=== PATIENT | female | born 1960 | race Caucasian/White ===

== ENCOUNTER 2020-01-26 09:23 | Emergency (ER) | payer BC ==
[2020-01-26] MEDS ORDERED: NORMAL SALINE 1000 ML 1,000 ML IV ONE (10:32)
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
[2020-01-26 10:51] LABS: ABSOLUTE EOSINOPHILS # (AUTO) 0.1 10^3/uL (0.0-0.6); ABSOLUTE LYMPHOCYTES (AUTO) 2.5 10^3/uL (0.5-4.7); ABSOLUTE MONOCYTES (AUTO) 0.5 10^3/uL (0.1-1.4); ABSOLUTE NEUT (AUTO) 12.6 10^3/uL (1.7-8.2); BASOPHILS % (AUTO) 0.2 % (0-2); EOSINOPHILS % (AUTO) 0.3 % (0-6); HEMATOCRIT 42.5 % (36.0-47.0); HEMOGLOBIN 14.6 g/dL (12.0-15.5); LYMPHOCYTES % (AUTO) 15.9 % (13-45); MEAN CORPUSCULAR HEMOGLOBIN 29.5 pg (27.0-33.4); MEAN CORPUSCULAR HGB CONC 34.3 g/dL (32.0-36.0); MEAN CORPUSCULAR VOLUME 86 fl (80-97); MONOCYTES % (AUTO) 3.1 % (3-13); PLATELET COUNT 385 10^3/uL (150-450); RED BLOOD COUNT 4.94 10^6/uL (3.72-5.28); RED CELL DISTRIBUTION WIDTH 14.8 % (11.5-14.0); SEGMENTED NEUTROPHILS % (AUTO) 80.5 % (42-78); TOTAL CELLS COUNTED % (AUTO) 100 %; WHITE BLOOD COUNT 15.7 10^3/uL (4.0-10.5)
[2020-01-26 11:12] LABS: ALBUMIN 4.5 g/dL (3.5-5.0); ALKALINE PHOSPHATASE 61 U/L (38-126); ANION GAP 9 (5-19); ASPARTATE AMINO TRANSFERASE 17 U/L (14-36); BILIRUBIN,TOTAL 0.8 mg/dL (0.2-1.3); BLOOD UREA NITROGEN 11 mg/dL (7-20); CALCIUM 9.8 mg/dL (8.4-10.2); CARBON DIOXIDE 26 mmol/L (22-30); CHLORIDE 105 mmol/L (98-107); GLUCOSE 120 mg/dL (75-110); TOTAL PROTEIN 7.7 g/dL (6.3-8.2)
[2020-01-26] MEDS ORDERED: ONDANSETRON HCL INJ/PF 4 MG/2 ML SDV IV ONE (11:55)
[2020-01-26] MEDS ORDERED: FENTANYL CITRATE INJ/PF 100 MCG/2 ML AMPUL IV ONE (11:55)
[2020-01-26 12:12] LABS: APPEARANCE,URINE CLEAR; BILIRUBIN,URINE NEGATIVE (NEGATIVE); COLOR,URINE YELLOW; GLUCOSE, URINE NEGATIVE (NEGATIVE); KETONES,URINE TRACE mg/dL (NEGATIVE); LEUKOCYTE ESTERASE,URINE NEGATIVE (NEGATIVE); NITRITE,URINE NEGATIVE (NEGATIVE); PROTEIN,URINE NEGATIVE (NEGATIVE); URINE SPECIFIC GRAVITY 1.014; UROBILINOGEN,URINE NEGATIVE mg/dL (<2.0)
--- NOTE | 2020-01-26 14:35 | RADIOLOGY REPORT (SQ) ---
EXAM DESCRIPTION: CT ABD/PELVIS WITH IV ORAL IMAGES COMPLETED DATE/TIME: 01/26/2020 2:10 pm REASON FOR STUDY: lower pelvic pain COMPARISON: None. TECHNIQUE: CT scan of the abdomen and pelvis performed using helical scanning technique with dynamic intravenous contrast injection. No oral contrast. Images reviewed with lung, soft tissue, and bone windows. Reconstructed coronal and sagittal MPR images reviewed. Delayed images for evaluation of the urinary system also acquired. All images stored on PACS. All CT scanners at this facility use dose modulation, iterative reconstruction, and/or weight based d osing when appropriate to reduce radiation dose to as low as reasonably achievable (ALARA). [facility]: Dose Right [facility]: CareDose [facility]: Dose Right [facility]: Teradose 4D [facility]: orangutrans CONTRAST TYPE AND DOSE: contrast/concentration: Isovue 350.00 mg/ml; Total Contrast Delivered: 70.0 ml; Total Saline Delivered: 65.0 ml RENAL FUNCTION: BUN 11, creatinine 0.72 RADIATION DOSE: CT Rad equipment meets quality standard of care and radiation dose reduction techniq ues were employed. CTDIvol: 6.4 - 9.0 mGy. DLP: 805 mGy-cm.. LIMITATIONS: None. FINDINGS: LOWER CHEST: No significant findings. No nodules or infiltrates. LIVER: Small hepatic cyst. Normal size. No suspicious masses. SPLEEN: Normal size. No focal lesions. PANCREAS: No masses. No significant calcifications. No adjacent inflammation or peripancreatic fluid collections. Pancreatic duct not dilated. GALLBLADDER: No identified stones by CT criteria. No inflammatory changes to suggest cholecystitis. ADRENAL GLANDS: No significant masses or asymmetry. RIGHT KIDNEY AND URETER: No solid masses. No significant calcifications. No hydronephrosis or hyd roureter. LEFT KIDNEY AND URETER: Small hypoattenuating lesion in the cortex of left kidney approximately mid p ole this is too small to accurately characterize but most likely a small cyst. No significant calci fications. No hydronephrosis or hydroureter. AORTA AND VESSELS: No aneurysm. No dissection. Renal arteries, SMA, celiac without stenosis. RETROPERITONEUM: No retroperitoneal adenopathy, hemorrhage or masses. BOWEL AND PERITONEAL CAVITY: Extensive inflammatory changes surrounding the descending sigmoid colon. There are numerous diverticuli in this area. Changes may represent diverticulitis. Focal mass can not be excluded. Overall size is 6.9 x 4.1 cm. There is surrounding inflammation most marked distal ly. No drainable fluid collections. Small contained perforation is suspected best demonstrated on s eries 5, image 63. This measures 1.3 cm in size. APPENDIX: Surgically absent. PELVIS: No mass. No free fluid. Normal bladder. ABDOMINAL WALL: No masses. No hernias. BONES: No significant or acute findings. OTHER: No other significant finding. IMPRESSION: Inflammatory changes surrounding the distal sigmoid colon. Most likely diverticulitis. Underlying neoplasm cannot be excluded. No focal drainable abscess. Probable loculated collection in the right aspect of the pelvis measured 1.3 cm. This is best demonstrated on series 5, image 63. TECHNICAL DOCUMENTATION: JOB ID: [id number] Quality ID # [id number]: Final reports with documentation of one or more dose reduction techniques (e.g., Au tomated exposure control, adjustment of the mA and/or kV according to patient size, use of iterative reconstruction technique) 2010 [employer]- All Rights Reserved Reading location - IP/workstation name: [email or web address]
[2020-01-26 15:06] VITALS: BP 133/112
[2020-01-26] MEDS ORDERED: CIPROFLOXACIN HCL 500 MG TABLET PO ONE (15:33)
[2020-01-26] MEDS ORDERED: METRONIDAZOLE 500 MG TABLET PO ONE (15:33)
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
== END 2020-01-26 15:52 | disposition home or self-care (01) ==
LOC: ER 09:23
DX: K57.92 Diverticulitis of intestine, part unspecified, without perforation or abscess without bleeding (principal); R10.30 Lower abdominal pain, unspecified; R11.2 Nausea with vomiting, unspecified; R10.2 Pelvic and perineal pain; M54.5 Low back pain; Z87.891 Personal history of nicotine dependence; I10 Essential (primary) hypertension
CPT/HCPCS: 99284; 96361; 96374; 96375; 36415; 83690; 85025; 80053; 81001; 74177; J3010; J2405; J7030

== ENCOUNTER → 2020-02-15 | Outpatient (CLI) | payer BC ==
--- NOTE | 2020-02-15 14:46 | RADIOLOGY REPORT (SQ) ---
EXAM DESCRIPTION: CT ABD/PELVIS WITH IV ORAL IMAGES COMPLETED DATE/TIME: 02/15/2020 1:08 pm REASON FOR STUDY: K57.92 DVTRCLI OF INTEST, PART UNSP, W/O PERF OR ABSCESS W/O BLEED K57.92 DVTRCLI OF INTEST, PART UNSP, W/O PERF OR ABSCESS W/O COMPARISON: 01/26/2020 TECHNIQUE: CT scan of the abdomen and pelvis performed using helical scanning technique with dynamic intravenous contrast injection. Oral contrast. Images reviewed with lung, soft tissue, and bone win dows. Reconstructed coronal and sagittal MPR images reviewed. Delayed images for evaluation of the ur inary system also acquired. All images stored on PACS. All CT scanners at this facility use dose modulation, iterative reconstruction, and/or weight based d osing when appropriate to reduce radiation dose to as low as reasonably achievable (ALARA). [facility]: Dose Right [facility]: CareDose [facility]: Dose Right [facility]: Teradose 4D [facility]: Elixr CONTRAST TYPE AND DOSE: 65 cc Omnipaque 350- low osmolar. RENAL FUNCTION: BUN 11 creatinine 0.72 RADIATION DOSE: CT Rad equipment meets quality standard of care and radiation dose reduction techniq ues were employed. CTDIvol: 4.6 - 4.6 mGy. DLP: 444 mGy-cm.. LIMITATIONS: None. FINDINGS: LOWER CHEST: No significant findings. No nodules or infiltrates. LIVER: Normal size. No masses. No dilated ducts. SPLEEN: Normal size. No focal lesions. PANCREAS: No masses. No significant calcifications. No adjacent inflammation or peripancreatic fluid collections. Pancreatic duct not dilated. GALLBLADDER: No identified stones by CT criteria. No inflammatory changes to suggest cholecystitis. ADRENAL GLANDS: No significant masses or asymmetry. RIGHT KIDNEY AND URETER: No solid masses. No significant calcifications. No hydronephrosis or hyd roureter. LEFT KIDNEY AND URETER: No solid masses. No significant calcifications. No hydronephrosis or hydr oureter. AORTA AND VESSELS: No aneurysm. No dissection. Renal arteries, SMA, celiac without stenosis. RETROPERITONEUM: No retroperitoneal adenopathy, hemorrhage or masses. BOWEL AND PERITONEAL CAVITY: Descending and sigmoid diverticulosis. There is thickening of a segment of the sigmoid colon seen best on image 61 series 2. There appears to be slight improvement in the appearance compared to the earlier study. No abscess is appreciated. No free air is appreciated. APPENDIX: Surgically absent. PELVIS: No mass. No free fluid. Normal bladder. ABDOMINAL WALL: No masses. No hernias. BONES: No significant or acute findings. OTHER: No other significant finding. IMPRESSION: Diverticulosis. There is thickening of a segment of sigmoid colon with slight improveme nt that may indicate persistent inflammation. Continued follow-up is recommended. No abscess is see n. No significant perforation is seen. TECHNICAL DOCUMENTATION: JOB ID: [id number] Quality ID # [id number]: Final reports with documentation of one or more dose reduction techniques (e.g., Au tomated exposure control, adjustment of the mA and/or kV according to patient size, use of iterative reconstruction technique) 2010 [employer]- All Rights Reserved Reading location - IP/workstation name: [email or web address]
== END ==
LOC: RAD 12:42
PROVIDERS: ATTEND Surgery
DX: K57.92 Diverticulitis of intestine, part unspecified, without perforation or abscess without bleeding (principal); R10.9 Unspecified abdominal pain
CPT/HCPCS: 74177

== ENCOUNTER 2020-03-05 15:44 | Inpatient (IN) | payer BC ==
[2020-03-05] MEDS ORDERED: NORMAL SALINE 1000 ML 1,000 ML IV ONE (17:15)
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
[2020-03-05 18:12] LABS: ABSOLUTE LYMPHOCYTES (AUTO) 1.9 10^3/uL (0.5-4.7); ABSOLUTE MONOCYTES (AUTO) 1.2 10^3/uL (0.1-1.4); ABSOLUTE NEUT (AUTO) 11.1 10^3/uL (1.7-8.2); BASOPHILS % (AUTO) 0.3 % (0-2); EOSINOPHILS % (AUTO) 0.2 % (0-6); HEMATOCRIT 41.1 % (36.0-47.0); LYMPHOCYTES % (AUTO) 13.5 % (13-45); MEAN CORPUSCULAR HEMOGLOBIN 29.5 pg (27.0-33.4); MEAN CORPUSCULAR VOLUME 87 fl (80-97); MONOCYTES % (AUTO) 8.5 % (3-13); PLATELET COUNT 493 10^3/uL (150-450); RED BLOOD COUNT 4.73 10^6/uL (3.72-5.28); RED CELL DISTRIBUTION WIDTH 15.7 % (11.5-14.0); SEGMENTED NEUTROPHILS % (AUTO) 77.5 % (42-78); TOTAL CELLS COUNTED % (AUTO) 100 %; WHITE BLOOD COUNT 14.3 10^3/uL (4.0-10.5)
[2020-03-05 18:25] LABS: ALBUMIN 3.8 g/dL (3.5-5.0); ALKALINE PHOSPHATASE 125 U/L (38-126); ANION GAP 15 (5-19); ASPARTATE AMINO TRANSFERASE 22 U/L (14-36); BILIRUBIN,DIRECT 0.4 mg/dL (0.0-0.4); BILIRUBIN,TOTAL 1.5 mg/dL (0.2-1.3); BLOOD UREA NITROGEN 14 mg/dL (7-20); CALCIUM 9.4 mg/dL (8.4-10.2); CARBON DIOXIDE 22 mmol/L (22-30); CHLORIDE 98 mmol/L (98-107); GLUCOSE 107 mg/dL (75-110); TOTAL PROTEIN 7.4 g/dL (6.3-8.2)
[2020-03-05] MEDS ORDERED: ONDANSETRON HCL INJ/PF 4 MG/2 ML SDV IV ONE (21:31)
[2020-03-05] MEDS ORDERED: HYDROMORPHONE HCL INJ/PF 2 MG/ML AMPULE IV ONE (21:31)
[2020-03-05 21:42] LABS: APPEARANCE,URINE CLOUDY; BILIRUBIN,URINE SMALL (NEGATIVE); GLUCOSE, URINE NEGATIVE (NEGATIVE); KETONES,URINE 80 mg/dL (NEGATIVE); LEUKOCYTE ESTERASE,URINE MODERATE (NEGATIVE); NITRITE,URINE NEGATIVE (NEGATIVE); PROTEIN,URINE 100 mg/dL (NEGATIVE); URINE SPECIFIC GRAVITY 1.027
[2020-03-05 21:43] LABS: COLOR,URINE DARK YELLOW
[2020-03-05] MEDS ORDERED: CEFOXITIN 1 GM/D5W RTU 1 GM/50 ML RTUPB IV ONE (22:01)
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
[2020-03-05] MEDS ORDERED: METRONIDAZOLE 500 MG/NS RTU 500 MG/100 ML RTUPB IV ONE (23:15)
[2020-03-05] MEDS ORDERED: CLINDAMYCIN 600 MG/D5W RTU 600 MG/50 ML RTUPB IV ONE (23:30)
[2020-03-06] MEDS: RINGERS SOLUTION,LACTATED 1,000 ML IV PRN ×3 (00:19→20:06)
--- NOTE | 2020-03-06 00:23 | EKG REPORT ---
SEVERITY:- NORMAL ECG - SINUS RHYTHM : Confirmed by: Noble Barkley 06-Mar-2020 00:22:36
--- NOTE | 2020-03-06 01:28 | RADIOLOGY REPORT (SQ) ---
CLINICAL HISTORY: LLQ pain COMPARISON: 02/15/2020. TECHNIQUE: CT ABDOMEN PELVIS WITH IV CONTRAST on 03/05/2020 12:00 AM CDT This exam was performed according to our departmental dose-optimization program, which includes automated exposure control, adjustment of the mA and/or kV according to patient size and/or use of iterative reconstruction technique. FINDINGS: Lower lungs are clear. Abdomen: The liver is normal in appearance. There is no biliary dilatation. Gallbladder is normal in appearance. There is a tiny hiatal hernia. There is moderate proximal duodenal diverticulum. The pancreas and spleen are normal in appearance. The adrenal glands and kidneys are unremarkable. Abdominal aorta is normal in course and caliber without aneurysm. There is no free air. There is no retroperitoneal adenopathy. Pelvis: There is moderate distal colonic diverticulosis. There is inflammation surrounding the sigmoid colon with at least three separate collections of fluid and air in the lower aspect of the pelvis, with the largest measuring 6 cm. Urinary bladder is unremarkable. There is no free fluid. Uterus is normal in size. Probable appendectomy was performed. Skeleton: There are no acute osseous findings. No suspicious bony lesions. IMPRESSION: Worsening abscesses within the central pelvis, almost certainly due to prior episode of diverticulitis.
[2020-03-06] MEDS: ACETAMINOPHEN INJ/PF 1000 MG/100 ML SDV IV SCH ×4 (01:41→17:23)
[2020-03-06] MEDS: CLINDAMYCIN 600 MG/D5W RTU 600 MG/50 ML RTUPB IV SCH ×3 (05:56→22:36)
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
[2020-03-06] MEDS: METRONIDAZOLE 500 MG/NS RTU 500 MG/100 ML RTUPB IV SCH ×3 (07:54→21:24)
[2020-03-06] MEDS: HYDROMORPHONE HCL INJ/PF 2 MG/ML AMPULE IV PRN ×4 (08:01→20:06)
[2020-03-06] MEDS ORDERED: PEG 3350/NA SULF,BICARB,CL/KCL 4000 ML PO ONE (08:13)
[2020-03-06 08:31] LABS: INTERNATIONAL RATION (INR) 1.19; PROTHROMBIN TIME 15.2 SEC (11.4-15.4)
[2020-03-06] MEDS ORDERED: MIDAZOLAM 2 MG/2 ML INJ ONE (13:15)
[2020-03-06] MEDS ORDERED: FENTANYL CITRATE INJ/PF 100 MCG/2 ML AMPUL ONE (13:15)
--- NOTE | 2020-03-06 14:09 | RADIOLOGY REPORT (SQ) ---
EXAM DESCRIPTION: CT DRAINAGE RETRO/PERITONEAL IMAGES COMPLETED DATE/TIME: 03/06/2020 1:46 pm REASON FOR STUDY: Drainage of pelvic abscess COMPARISON: None. FLUORO TIME: 4.4 seconds 33 images saved to PACS. LIMITATIONS: None. PROCEDURE: After obtaining informed consent, the patient was brought to the CT suite and was placed supine on the CT gurney. The patient was prepped and draped in the usual sterile fashion . Axial [place] ges were obtained for targeting of thepelvic abscess. An appropriate access site was selected. IV co nscious sedation was administered and physician direction by the registered nurse using 1.5 milligram s of Versed and 75 micrograms of fentanyl. Physiologic monitoring was provided before, during, and af ter sedation. The total sedation time was 40 minutes. Documentation face to face time, the performing proceduralist, spent monitoring the patient: 8minutes . Using CT fluoroscopic guidance the pelvic abscess was cannulated. There is immediate return of air a m purulent fluid. A guidewire was placed. Sequential dilatation performed and a [address] placed. Catheter was secured to the skin. Catheter was placed to accordion drainage bag. Steri le dressing was applied. 2 smaller fluid collections in the pelvis are also noted IMPRESSION: Successful placement of percutaneous drainage catheter into the largest of 3 pelvic flui d collections as described. Purulent fluid was aspirated. Samples were sent to pathology for evalua tion. COMMENT: Patient medication list reviewed:Yes- Quality ID# 130:Eligible professional attests to docu menting in the medical record they obtained, updated, or reviewed the patient's current medications. Quality ID #76: The patient was prepped and draped using maximum sterile barrier technique including cap, mask, sterile gown, sterile gloves, a large sterile sheet, hand hygiene, and 2% Chlorhexidine fo r cutaneous antisepsis. When ultrasound is used, sterile ultrasound techniques are followed requiring sterile gel and sterile probes. Quality ID 145: Final reports for procedures using fluoroscopy that document radiation exposure dawn nicholas, or exposure time and number of fluorographic images (if radiation exposure indices are not avail able) Quality ID# 436: Final reports with documentation of one or more dose reduction techniques (e.g., Aut omated exposure control, adjustment of the mA and/or kV according to patient size, use of iterative r econstruction technique) TECHNICAL DOCUMENTATION: JOB ID: [id number] 2010 [employer]- All Rights Reserved rev-12/24 Reading location - IP/workstation name: [email or web address]
--- NOTE | 2020-03-06 15:36 | PDOC PROGRESS REPORT ---
Subjective Progress Note for:: 03/06/20 Subjective:: c/o lower abd pain/pressure prior to percdrain Reason For Visit: COMPLICATED DIVERTICULITIS WITH A PELVIC ABSCESS Physical Exam Vital Signs: Temp Pulse Resp BP Pulse Ox 97.8 F 76 12 148/89 H 100 03/06/20 08:00 03/06/20 08:00 03/06/20 08:00 03/06/20 08:00 03/06/20 08:00 Intake & Output 03/05/20 03/06/20 03/07/20 06:59 06:59 06:59 Intake Total 1200 1050 Balance 1200 1050 Weight 61.9 kg General appearance: PRESENT: mild distress Head exam: PRESENT: normocephalic Eye exam: PRESENT: EOMI Ear exam: PRESENT: normal external ear exam Mouth exam: PRESENT: moist Neck exam: PRESENT: full ROM Respiratory exam: PRESENT: clear to auscultation carlos Cardiovascular exam: PRESENT: RRR Pulses: PRESENT: +2 pedal pulses bilateral GI/Abdominal exam: PRESENT: tenderness - suprapubic and llq Rectal exam: PRESENT: deferred Extremities exam: PRESENT: full ROM Musculoskeletal exam: PRESENT: full ROM Neurological exam: PRESENT: alert, awake, oriented to person, oriented to place Psychiatric exam: PRESENT: appropriate affect Skin exam: PRESENT: dry Results Laboratory Results: 03/05/20 17:45 03/05/20 17:45 03/05/20 03/05/20 03/05/20 17:45 17:45 17:45 WBC 14.3 H RBC 4.73 Hgb 14.0 Hct 41.1 MCV 87 MCH 29.5 MCHC 34.0 RDW 15.7 H Plt Count 493 H Seg Neutrophils % 77.5 Sodium 134.9 L Potassium 4.0 Chloride 98 Carbon Dioxide 22 Anion Gap 15 BUN 14 Creatinine 0.77 Est GFR ( Amer) > 60 Glucose 107 Calcium 9.4 Total Bilirubin 1.5 H AST 22 Alkaline Phosphatase 125 Total Protein 7.4 Albumin 3.8 Lipase 37.9 Urine Color Urine Appearance Urine pH Ur Specific [place] Urine Protein Urine Glucose (UA) Urine Ketones Urine Blood Urine Nitrite Ur Leukocyte Esterase Urine WBC (Auto) Urine RBC (Auto) 03/05/20 19:45 WBC RBC Hgb Hct MCV MCH MCHC RDW Plt Count Seg Neutrophils % Sodium Potassium Chloride Carbon Dioxide Anion Gap BUN Creatinine Est GFR ( Amer) Glucose Calcium Total Bilirubin AST Alkaline Phosphatase Total Protein Albumin Lipase Urine Color DARK YELLOW Urine Appearance CLOUDY Urine pH 5.0 Ur Specific [place] 1.027 Urine Protein 100 H Urine Glucose (UA) NEGATIVE Urine Ketones 80 H Urine Blood SMALL H Urine Nitrite NEGATIVE Ur Leukocyte Esterase MODERATE H Urine WBC (Auto) 32 Urine RBC (Auto) 36 Impressions: Abdomen/Pelvis CT 03/05/20 00:00 IMPRESSION: Worsening abscesses within the central pelvis, almost certainly due to prior episode of diverticulitis. Retroperitoneal Abscess Drainage 03/06/20 08:00 IMPRESSION: Successful placement of percutaneous drainage catheter into the largest of 3 pelvic fluid collections as described. Purulent fluid was aspirated. Samples were sent to pathology for evaluation. Assessment & Plan - Plan Summary Plan Summary: pts ct reveiewd just completed perc drain of abscess will cont iv abx for now recheck cbc in am
[2020-03-06 17:10] LABS: ANION GAP 11 (5-19); BLOOD UREA NITROGEN 13 mg/dL (7-20); CALCIUM 8.5 mg/dL (8.4-10.2); CARBON DIOXIDE 22 mmol/L (22-30); CHLORIDE 101 mmol/L (98-107); GLUCOSE 89 mg/dL (75-110); POTASSIUM 3.7 mmol/L (3.6-5.0)
[2020-03-06 20:49] LABS: ABSOLUTE BASOPHILS # (AUTO) 0.1 10^3/uL (0.0-0.2); ABSOLUTE EOSINOPHILS # (AUTO) 0.1 10^3/uL (0.0-0.6); ABSOLUTE MONOCYTES (AUTO) 1.2 10^3/uL (0.1-1.4); BASOPHILS % (AUTO) 0.7 % (0-2); EOSINOPHILS % (AUTO) 0.4 % (0-6); HEMATOCRIT 32.4 % (36.0-47.0); LYMPHOCYTES % (AUTO) 11.6 % (13-45); MEAN CORPUSCULAR HEMOGLOBIN 29.9 pg (27.0-33.4); MEAN CORPUSCULAR HGB CONC 35.1 g/dL (32.0-36.0); MEAN CORPUSCULAR VOLUME 85 fl (80-97); MONOCYTES % (AUTO) 6.9 % (3-13); PLATELET COUNT 369 10^3/uL (150-450); RED BLOOD COUNT 3.79 10^6/uL (3.72-5.28); RED CELL DISTRIBUTION WIDTH 15.6 % (11.5-14.0); SEGMENTED NEUTROPHILS % (AUTO) 80.4 % (42-78); TOTAL CELLS COUNTED % (AUTO) 100 %; WHITE BLOOD COUNT 17.4 10^3/uL (4.0-10.5)
[2020-03-06] MEDS: ONDANSETRON HCL INJ/PF 4 MG/2 ML SDV IV PRN (21:24)
[2020-03-06 23:25] LABS: HEMOGLOBIN 11.3 g/dL (12.0-15.5)
[2020-03-07] MEDS: HYDROMORPHONE HCL INJ/PF 2 MG/ML AMPULE IV PRN ×4 (00:19→20:03)
[2020-03-07] MEDS: ACETAMINOPHEN INJ/PF 1000 MG/100 ML SDV IV SCH ×4 (00:19→17:12)
[2020-03-07] MEDS: RINGERS SOLUTION,LACTATED 1,000 ML IV PRN ×3 (03:52→21:17)
[2020-03-07] MEDS: METRONIDAZOLE 500 MG/NS RTU 500 MG/100 ML RTUPB IV SCH ×3 (05:01→21:16)
[2020-03-07] MEDS: CLINDAMYCIN 600 MG/D5W RTU 600 MG/50 ML RTUPB IV SCH ×3 (05:59→21:16)
--- NOTE | 2020-03-07 08:55 | PDOC PROGRESS REPORT ---
Subjective Progress Note for:: 03/07/20 Subjective:: Still with lower abdominal pain slightly improved no flatus or stool as yet percutaneous drain in place Reason For Visit: COMPLICATED DIVERTICULITIS WITH A PELVIC ABSCESS Physical Exam Vital Signs: Temp Pulse Resp BP Pulse Ox 97.4 F 60 16 134/69 H 100 03/06/20 23:10 03/06/20 23:10 03/06/20 23:10 03/06/20 23:10 03/06/20 23:10 Intake & Output 03/06/20 03/07/20 03/08/20 06:59 06:59 06:59 Intake Total 1200 4305 Output Total 60 Balance 1200 4245 Weight 61.9 kg 61.9 kg General appearance: PRESENT: mild distress Head exam: PRESENT: normocephalic Eye exam: PRESENT: EOMI Ear exam: PRESENT: normal external ear exam Mouth exam: PRESENT: moist Neck exam: PRESENT: full ROM Respiratory exam: PRESENT: clear to auscultation carlos Cardiovascular exam: PRESENT: RRR Breast: PRESENT: Normal GI/Abdominal exam: PRESENT: tenderness - Suprapubic and left lower quadrant Rectal exam: PRESENT: deferred Extremities exam: PRESENT: full ROM Musculoskeletal exam: PRESENT: full ROM Neurological exam: PRESENT: awake, oriented to person, oriented to place Psychiatric exam: PRESENT: depressed Skin exam: PRESENT: dry Results Laboratory Results: 03/06/20 19:40 03/06/20 16:15 03/06/20 03/06/20 03/06/20 16:15 16:15 19:40 WBC Cancelled 17.4 H RBC Cancelled 3.79 Hgb Cancelled 11.3 L D Hct Cancelled 32.4 L MCV Cancelled 85 MCH Cancelled 29.9 MCHC Cancelled 35.1 RDW Cancelled 15.6 H Plt Count Cancelled 369 Seg Neutrophils % Cancelled 80.4 H Sodium 134.4 L Potassium 3.7 Chloride 101 Carbon Dioxide 22 Anion Gap 11 BUN 13 Creatinine 0.60 Est GFR ( Amer) > 60 Glucose 89 Calcium 8.5 Impressions: Abdomen/Pelvis CT 03/05/20 00:00 IMPRESSION: Worsening abscesses within the central pelvis, almost certainly due to prior episode of diverticulitis. Retroperitoneal Abscess Drainage 03/06/20 08:00 IMPRESSION: Successful placement of percutaneous drainage catheter into the largest of 3 pelvic fluid collections as described. Purulent fluid was aspirated. Samples were sent to pathology for evaluation. Assessment & Plan - Plan Summary Plan Summary: Impression perforated diverticulitis with localized abscess status post percutaneous drainage yesterday. White blood count slightly elevated this morning to 17 which was drawn last p.m. Plan continue liquid diet await colonic bowel function. May repeat CT scan in 1 or 2 days continue IV antibiotics I had a long discussion with the patient this morning about possible need for emergent sigmoid resection and colostomy versus continued IV antibiotics and elective sigmoid colectomy with primary anastomosis. She understands that she may need surgery during his hospital stay for the percutaneous drainage does not accomplish the objective of reducing the inflammation and restoring normal bowel movements.
[2020-03-07 11:16] LABS: ABSOLUTE LYMPHOCYTES (AUTO) 1.6 10^3/uL (0.5-4.7); BASOPHILS % (AUTO) 0.2 % (0-2); EOSINOPHILS % (AUTO) 0.2 % (0-6); HEMATOCRIT 38.4 % (36.0-47.0); HEMOGLOBIN 12.8 g/dL (12.0-15.5); LYMPHOCYTES % (AUTO) 10.5 % (13-45); MEAN CORPUSCULAR HEMOGLOBIN 28.9 pg (27.0-33.4); MEAN CORPUSCULAR HGB CONC 33.2 g/dL (32.0-36.0); MEAN CORPUSCULAR VOLUME 87 fl (80-97); MONOCYTES % (AUTO) 6.6 % (3-13); PLATELET COUNT 491 10^3/uL (150-450); RED BLOOD COUNT 4.41 10^6/uL (3.72-5.28); RED CELL DISTRIBUTION WIDTH 15.5 % (11.5-14.0); SEGMENTED NEUTROPHILS % (AUTO) 82.5 % (42-78); TOTAL CELLS COUNTED % (AUTO) 100 %; WHITE BLOOD COUNT 15.7 10^3/uL (4.0-10.5)
[2020-03-07 11:33] LABS: ANION GAP 13 (5-19); BLOOD UREA NITROGEN 11 mg/dL (7-20); CALCIUM 8.2 mg/dL (8.4-10.2); CARBON DIOXIDE 24 mmol/L (22-30); CHLORIDE 97 mmol/L (98-107); GLUCOSE 109 mg/dL (75-110); POTASSIUM 3.4 mmol/L (3.6-5.0)
[2020-03-07] MEDS: ONDANSETRON HCL INJ/PF 4 MG/2 ML SDV IV PRN (18:27)
[2020-03-08] MEDS: ACETAMINOPHEN INJ/PF 1000 MG/100 ML SDV IV SCH ×4 (00:59→17:20)
[2020-03-08] MEDS: HYDROMORPHONE HCL INJ/PF 2 MG/ML AMPULE IV PRN ×3 (02:45→17:20)
[2020-03-08] MEDS: CLINDAMYCIN 600 MG/D5W RTU 600 MG/50 ML RTUPB IV SCH (05:23)
[2020-03-08] MEDS: METRONIDAZOLE 500 MG/NS RTU 500 MG/100 ML RTUPB IV SCH ×3 (05:23→21:12)
[2020-03-08 06:39] LABS: HEMOGLOBIN 12.2 g/dL (12.0-15.5); MEAN CORPUSCULAR HEMOGLOBIN 29.3 pg (27.0-33.4); MEAN CORPUSCULAR VOLUME 86 fl (80-97); PLATELET COUNT 458 10^3/uL (150-450); RED BLOOD COUNT 4.18 10^6/uL (3.72-5.28); RED CELL DISTRIBUTION WIDTH 15.8 % (11.5-14.0); WHITE BLOOD COUNT 20.5 10^3/uL (4.0-10.5)
[2020-03-08 06:56] LABS: ABSOLUTE LYMPHOCYTES# (MANUAL) 2.1 10^3/uL (0.5-4.7); ABSOLUTE MONOCYTES # (MANUAL) 0.4 10^3/uL (0.1-1.4); BAND NEUTROPHILS % (MANUAL) 4 % (3-5); BASOPHILS % (MANUAL) 0 % (0-2); EOSINOPHILS % (MANUAL) 0 % (0-6); LYMPHOCYTES % (MANUAL) 10 % (13-45); MONOCYTES % (MANUAL) 2 % (3-13); SEGMENTED NEUTROPHILS % (MAN) 84 % (42-78); TOTAL CELLS COUNTED 100
[2020-03-08 06:57] LABS: ANISOCYTOSIS SLIGHT
[2020-03-08 06:58] LABS: OVALOCYTES SLIGHT; PLATELET COMMENT INCREASED; TOXIC GRANULATION SLIGHT
--- NOTE | 2020-03-08 07:22 | PDOC PROGRESS REPORT ---
Subjective Progress Note for:: 03/08/20 Subjective:: still with lower abd pain, but sl improved c/o nausea after pain meds and vomiting no flatus or stool Reason For Visit: COMPLICATED DIVERTICULITIS WITH A PELVIC ABSCESS Physical Exam Vital Signs: Temp Pulse Resp BP Pulse Ox 97.9 F 68 16 119/66 99 03/07/20 23:32 03/07/20 23:32 03/07/20 23:32 03/07/20 23:32 03/07/20 23:32 Intake & Output 03/07/20 03/08/20 03/09/20 06:59 06:59 06:59 Intake Total 4305 1865 Output Total 60 30 Balance 4245 1835 Weight 61.9 kg 62 kg General appearance: PRESENT: mild distress Head exam: PRESENT: normocephalic Eye exam: PRESENT: EOMI Ear exam: PRESENT: normal external ear exam Mouth exam: PRESENT: moist Neck exam: PRESENT: full ROM Respiratory exam: PRESENT: clear to auscultation carlos Cardiovascular exam: PRESENT: RRR GI/Abdominal exam: PRESENT: tenderness - suprapubic Rectal exam: PRESENT: deferred Extremities exam: PRESENT: full ROM Musculoskeletal exam: PRESENT: full ROM Neurological exam: PRESENT: alert, oriented to person, oriented to place Psychiatric exam: PRESENT: appropriate affect Skin exam: PRESENT: dry Results Laboratory Results: 03/08/20 05:02 03/07/20 03/07/20 03/08/20 09:33 09:33 05:02 WBC 15.7 H 20.5 H RBC 4.41 4.18 Hgb 12.8 12.2 Hct 38.4 36.0 MCV 87 86 MCH 28.9 29.3 MCHC 33.2 34.0 RDW 15.5 H 15.8 H Plt Count 491 H 458 H Seg Neutrophils % 82.5 H Not Reportable Sodium 134.4 L Potassium 3.4 L Chloride 97 L Carbon Dioxide 24 Anion Gap 13 BUN 11 Creatinine 0.75 Est GFR ( Amer) > 60 Glucose 109 Calcium 8.2 L 03/06/20 13:38 Abdominal Fluid Gram Stain - Final 03/06/20 00:00 Blood Blood Culture (PCR) - Final Impressions: Abdomen/Pelvis CT 03/05/20 00:00 IMPRESSION: Worsening abscesses within the central pelvis, almost certainly due to prior episode of diverticulitis. Retroperitoneal Abscess Drainage 03/06/20 08:00 IMPRESSION: Successful placement of percutaneous drainage catheter into the largest of 3 pelvic fluid collections as described. Purulent fluid was aspir ated. Samples were sent to pathology for evaluation. Assessment & Plan - Plan Summary Plan Summary: pt with perforated diverticuliltis s/p perc drain of pelvic abscess wbc elevated today at 20k pt without flatus or stool plan cont iv abx pt wishes to proceed with sigmoid colectomy and colostomy for the perforated diverticulitis will schedule. npo.
[2020-03-08 07:27] LABS: ANION GAP 13 (5-19); BLOOD UREA NITROGEN 9 mg/dL (7-20); CARBON DIOXIDE 25 mmol/L (22-30); CHLORIDE 96 mmol/L (98-107); GLUCOSE 70 mg/dL (75-110); POTASSIUM 3.7 mmol/L (3.6-5.0)
[2020-03-08] MEDS: RINGERS SOLUTION,LACTATED 1,000 ML IV PRN (10:48)
[2020-03-08] MEDS: MEROPENEM 1 GM in NORMAL SALINE 50 ML IV SCH ×2 (10:48→17:20)
[2020-03-09] MEDS: ACETAMINOPHEN INJ/PF 1000 MG/100 ML SDV IV SCH (00:30)
[2020-03-09] MEDS: MEROPENEM 1 GM in NORMAL SALINE 50 ML IV SCH ×3 (01:39→18:09)
[2020-03-09] MEDS: RINGERS SOLUTION,LACTATED 1,000 ML IV PRN ×3 (01:40→19:00)
[2020-03-09] MEDS: METRONIDAZOLE 500 MG/NS RTU 500 MG/100 ML RTUPB IV SCH ×3 (06:31→22:41)
[2020-03-09 06:32] LABS: ABSOLUTE BASOPHILS # (AUTO) 0.1 10^3/uL (0.0-0.2); ABSOLUTE EOSINOPHILS # (AUTO) 0.1 10^3/uL (0.0-0.6); ABSOLUTE LYMPHOCYTES (AUTO) 2.2 10^3/uL (0.5-4.7); ABSOLUTE NEUT (AUTO) 10.4 10^3/uL (1.7-8.2); BASOPHILS % (AUTO) 0.6 % (0-2); EOSINOPHILS % (AUTO) 0.4 % (0-6); HEMATOCRIT 35.1 % (36.0-47.0); HEMOGLOBIN 11.9 g/dL (12.0-15.5); LYMPHOCYTES % (AUTO) 16.2 % (13-45); MEAN CORPUSCULAR HEMOGLOBIN 29.2 pg (27.0-33.4); MEAN CORPUSCULAR HGB CONC 33.8 g/dL (32.0-36.0); MEAN CORPUSCULAR VOLUME 86 fl (80-97); MONOCYTES % (AUTO) 7.2 % (3-13); PLATELET COUNT 477 10^3/uL (150-450); RED BLOOD COUNT 4.07 10^6/uL (3.72-5.28); RED CELL DISTRIBUTION WIDTH 15.6 % (11.5-14.0); SEGMENTED NEUTROPHILS % (AUTO) 75.6 % (42-78); TOTAL CELLS COUNTED % (AUTO) 100 %; WHITE BLOOD COUNT 13.8 10^3/uL (4.0-10.5)
[2020-03-09 06:51] LABS: ANION GAP 9 (5-19); BLOOD UREA NITROGEN 7 mg/dL (7-20); CALCIUM 7.8 mg/dL (8.4-10.2); CARBON DIOXIDE 25 mmol/L (22-30); CHLORIDE 100 mmol/L (98-107); GLUCOSE 83 mg/dL (75-110); POTASSIUM 3.6 mmol/L (3.6-5.0)
[2020-03-09] MEDS ORDERED: HYDROMORPHONE HCL INJ/PF 2 MG/ML AMPULE ONE (10:40)
[2020-03-09] MEDS ORDERED: MIDAZOLAM 2 MG/2 ML INJ ONE (10:40)
[2020-03-09] MEDS ORDERED: FENTANYL CITRATE INJ/PF 100 MCG/2 ML AMPUL ONE (10:40)
[2020-03-09] MEDS ORDERED: PROPOFOL INJ 200 MG/20 ML VIAL IV ONE (10:40)
[2020-03-09] MEDS ORDERED: NEOSTIGMINE METHYLSULFATE 10 MG/10 ML VIAL ONE (10:44)
[2020-03-09] MEDS ORDERED: ROCURONIUM BROMIDE INJ 50 MG/5 ML VIAL IV ONE (10:44)
[2020-03-09] MEDS ORDERED: ONDANSETRON HCL INJ/PF 4 MG/2 ML SDV ONE (10:44)
[2020-03-09] MEDS ORDERED: DEXAMETHASONE SOD PHOSPHATE INJ 4 MG/1 ML VIAL ONE (10:44)
[2020-03-09] MEDS ORDERED: LIDOCAINE 2% INJ-PF (20 MG/ML) 2 ML AMPUL ONE (10:44)
[2020-03-09] MEDS ORDERED: GLYCOPYRROLATE 1 MG/5 ML VIAL ONE (10:44)
[2020-03-09] MEDS ORDERED: BUPIVACAINE INJ/PF LIPOSOME/PF 266 MG/20 ML SDV ONE (11:11)
[2020-03-09] MEDS ORDERED: SUGAMMADEX SODIUM 200 MG/2 ML SDV IV ONE (14:21)
[2020-03-09] MEDS ORDERED: PROMETHAZINE HCL INJ 25 MG/1 ML VIAL IV PRN ×2 (14:35)
[2020-03-09] MEDS ORDERED: DIPHENHYDRAMINE HCL 50 MG/ML VIAL IV PRN (14:35)
[2020-03-09] MEDS ORDERED: FENTANYL CITRATE INJ/PF 100 MCG/2 ML AMPUL IV PRN ×3 (14:35)
[2020-03-09] MEDS ORDERED: MORPHINE SULFATE 10 MG/ML INJ IV PRN (14:35)
[2020-03-09] MEDS ORDERED: OXYCODONE-ACETAMINOPHEN 5-325 MG TABLET PO PRN ×2 (14:35)
[2020-03-09] MEDS ORDERED: ONDANSETRON HCL INJ/PF 4 MG/2 ML SDV IV PRN (14:35)
[2020-03-09] MEDS ORDERED: MEPERIDINE HCL/PF INJ 25 MG/1 ML DISP.SYRIN IV PRN (14:35)
[2020-03-09] MEDS ORDERED: PROMETHAZINE HCL INJ 25 MG/1 ML VIAL ONE (14:37)
[2020-03-09] MEDS: MORPHINE SULFATE 10 MG/ML INJ ONE ×3 (14:37→14:45)
--- NOTE | 2020-03-09 14:37 | Operative Report ---
Nonrecallable Operative Report DATE OF SURGERY: 03/09/20 PREOPERATIVE DIAGNOSIS: perforated diverticulitis with abscess POSTOPERATIVE DIAGNOSIS: Perforated diverticulitis with abscess OPERATION: Sigmoid colectomy and descending end colostomy small bowel resection and ileocecal resection and exploratory laparotomy with SURGEON: ALFREDO REINOSO ANESTHESIA: GA TISSUE REMOVED OR ALTERED: Sigmoid colon, terminal ileum and cecum, 5 cm segment of mid small bowel COMPLICATIONS: None ESTIMATED BLOOD LOSS: 200 cc INTRAOPERATIVE FINDINGS: See dictation PROCEDURE: Patient was brought to the operating awake alert in stable condition placed in the operative table supine position induced under general anesthesia and intubated the patient had a previous percutaneous abdominal drainage of a pelvic abscess to the mid abdominal indwelling PERC catheter this was prepped into the wound and the abdomen was prepped and draped in usual sterile fashion. Midline incision was then utilized from the umbilicus down to the pubic symphysis. Dissection was carried out through subcutaneous tissue with Bovie cautery. Midline fascia was opened with Bovie cautery. Once opening the midline fascia we noted that the omentum was adhesed to the anterior abdominal wall and the small bowel and the phlegmon of the sigmoid colon was adhesed to the catheter on the anterior abdominal wall therefore the catheter was removed. We then mobilized the sigmoid colon phlegmon away from the anterior abdominal wall with blunt dissection we noted pus coming from the area of the where the PERC drain had been removed. Once this was done we identified the fact that there were multiple loops of small bowel adhesed to the phlegmon as well as the fact that the catheter appeared to be traversing through the small bowel into the phlegmon. I mobilized the limbs of small bowel away from the phlegmon and noted that there were 2 specific limbs one was mid small bowel that was adhesed to the phlegmon and the PERC drain catheter was going through that there was also terminal ileum that was adhesed to the phlegmon that needed blunt dissection to mobilize that away once we mobilized the 2 small bowel loops away from the flank we noted stool coming from the mid small bowel portion of the that was adhesed but no evidence of leakage from the terminal ileum. I then mobilized the pelvic phlegmon sigmoid colon from the pelvis with the uterus was adhesed to the sigmoid colon phlegmon. Was very able to deliver the large mass into the upper abdomen I was able to identify normal rectum came across the proximal rectum with 1 firing of the Endo MADELINE stapler with a green load and divided the mesentery with the LigaSure device all the way to the mid descending colon I was careful not to injure the ureters and protected these. I came across the descending colon with 1 firing the Endo MADELINE stapler with a blue load and remove the specimen. We then turned attention to the terminal ileum. Terminal ileum appeared to be bluish in color and therefore elected to resected along with the cecum. I mobilized the ascending colon along the white line of Toldt the peritoneal reflection with Bovie cautery and then came across the ascending colon with 1 firing the Endo MADELINE stapler with a blue load and came across the terminal ileum with 1 firing of the Endo MADELINE stapler with a blue load. I then performed an ileo-colostomy anastomosing the terminal ileum to the ascending colon 2 layers to the outer layer being 2-0 silk in a running inner layer 3-0 Vicryl. I closed the mesenteric defect with interrupted 2-0 silk. Then the mid small bowel had a previous enterostomy from the drain I resected that using a staple technique I performed a functional end-to-end anastomosis proximal and distal to that area of leak with an Endo MADELINE stapler with a blue load and came in with a small section of bowel with 1 firing the Endo MADELINE s tapler with a green load encompassing both a for any abundio limbs into that staple line. I closed mesenteric defect with interrupted 2-0 silk. This created a functional end-to-end anastomosis. At this point turned attention to the left of the anterior abdominal wall I picked a point just lateral and inferior to the umbilicus created a skin defect with Bovie cautery and brought the descending colon through that skin defect and fascial defect with a Sushma clamp. We copiously irrigated the abdominal cavity normal saline suctioned dry hemostasis noted to be in fact we closed the midline fascia with a running double looped 0 Maxon suture and closed the skin with loosely with silverio in place for 5 Joel pledgets in between the staple lines. Sterile dressing was applied as well as a colostomy appliance patient was then transferred recovery in stable condition no complications. Sponge needle counts were correct x2
[2020-03-09] MEDS ORDERED: ACETAMINOPHEN 1,000 MG/100 ML RTUPB IV ONE (15:01)
[2020-03-09] MEDS: ONDANSETRON HCL INJ/PF 4 MG/2 ML SDV IV PRN (18:27)
[2020-03-09] MEDS: HYDROMORPHONE HCL INJ/PF 2 MG/ML AMPULE IV PRN (18:30)
[2020-03-09] MEDS: ACETAMINOPHEN 1,000 MG/100 ML RTUPB IV SCH (21:16)
[2020-03-10] MEDS: MEROPENEM 1 GM in NORMAL SALINE 50 ML IV SCH ×3 (02:39→17:43)
[2020-03-10] MEDS: RINGERS SOLUTION,LACTATED 1,000 ML IV PRN ×2 (02:41→15:26)
[2020-03-10] MEDS: ONDANSETRON HCL INJ/PF 4 MG/2 ML SDV IV PRN (04:06)
[2020-03-10] MEDS: ACETAMINOPHEN 1,000 MG/100 ML RTUPB IV SCH ×4 (04:06→21:12)
[2020-03-10 06:04] LABS: ABSOLUTE LYMPHOCYTES (AUTO) 1.6 10^3/uL (0.5-4.7); ABSOLUTE MONOCYTES (AUTO) 0.8 10^3/uL (0.1-1.4); ABSOLUTE NEUT (AUTO) 15.4 10^3/uL (1.7-8.2); BASOPHILS % (AUTO) 0.1 % (0-2); HEMATOCRIT 30.2 % (36.0-47.0); HEMOGLOBIN 10.2 g/dL (12.0-15.5); LYMPHOCYTES % (AUTO) 8.9 % (13-45); MEAN CORPUSCULAR HEMOGLOBIN 29.2 pg (27.0-33.4); MEAN CORPUSCULAR HGB CONC 33.8 g/dL (32.0-36.0); MEAN CORPUSCULAR VOLUME 86 fl (80-97); MONOCYTES % (AUTO) 4.6 % (3-13); PLATELET COUNT 456 10^3/uL (150-450); RED CELL DISTRIBUTION WIDTH 15.8 % (11.5-14.0); SEGMENTED NEUTROPHILS % (AUTO) 86.4 % (42-78); TOTAL CELLS COUNTED % (AUTO) 100 %; WHITE BLOOD COUNT 17.8 10^3/uL (4.0-10.5)
[2020-03-10 06:18] LABS: ANION GAP 9 (5-19); BLOOD UREA NITROGEN 8 mg/dL (7-20); CALCIUM 7.8 mg/dL (8.4-10.2); CARBON DIOXIDE 23 mmol/L (22-30); CHLORIDE 102 mmol/L (98-107); GLUCOSE 181 mg/dL (75-110); POTASSIUM 4.2 mmol/L (3.6-5.0)
[2020-03-10] MEDS: HYDROMORPHONE HCL INJ/PF 2 MG/ML AMPULE IV PRN ×2 (06:51→15:44)
[2020-03-10] MEDS: METRONIDAZOLE 500 MG/NS RTU 500 MG/100 ML RTUPB IV SCH ×3 (06:52→22:27)
--- NOTE | 2020-03-10 07:55 | PDOC PROGRESS REPORT ---
Subjective Progress Note for:: 03/10/20 Subjective:: c/o upper back pain Reason For Visit: COMPLICATED DIVERTICULITIS WITH A PELVIC ABSCESS Physical Exam Vital Signs: Temp Pulse Resp BP Pulse Ox 97.6 F 86 18 123/66 98 03/09/20 23:07 03/09/20 23:07 03/09/20 23:07 03/09/20 23:07 03/09/20 23:07 Intake & Output 03/09/20 03/10/20 03/11/20 06:59 06:59 06:59 Intake Total 1350 9870 Output Total 50 5050 Balance 1300 4820 Weight 61.8 kg 61.8 kg General appearance: PRESENT: no acute distress Head exam: PRESENT: normocephalic Eye exam: PRESENT: EOMI Ear exam: PRESENT: normal external ear exam Mouth exam: PRESENT: moist Neck exam: PRESENT: full ROM Respiratory exam: PRESENT: clear to auscultation carlos Cardiovascular exam: PRESENT: RRR Breast: PRESENT: Normal GI/Abdominal exam: PRESENT: soft Rectal exam: PRESENT: deferred Musculoskeletal exam: PRESENT: full ROM Neurological exam: PRESENT: alert, awake, oriented to person, oriented to place Psychiatric exam: PRESENT: appropriate affect Skin exam: PRESENT: dry Results Laboratory Results: 03/10/20 05:10 03/10/20 05:10 03/10/20 03/10/20 05:10 05:10 WBC 17.8 H RBC 3.50 L Hgb 10.2 L Hct 30.2 L MCV 86 MCH 29.2 MCHC 33.8 RDW 15.8 H Plt Count 456 H Seg Neutrophils % 86.4 H Sodium 133.6 L Potassium 4.2 Chloride 102 Carbon Dioxide 23 Anion Gap 9 BUN 8 Creatinine 0.67 Est GFR ( Amer) > 60 Glucose 181 H Calcium 7.8 L Impressions: Abdomen/Pelvis CT 03/05/20 00:00 IMPRESSION: Worsening abscesses within the central pelvis, almost certainly due to prior episode of diverticulitis. Retroperitoneal Abscess Drainage 03/06/20 08:00 IMPRESSION: Successful placement of percutaneous drainage catheter into the largest of 3 pelvic fluid collections as described. Purulent fluid was aspirated. Samples were sent to pathology for evaluation. Assessment & Plan - Plan Summary Plan Summary: doing ok pod 1 wbc 17k creat wnl stoma pink not yet productive ng with min op plan cont iv abx cont ng and caballero out of bed waiting on bowel function
[2020-03-10] MEDS: KETOROLAC TROMETHAMINE INJ/PF 30 MG/1 ML SDV IV SCH ×4 (09:46→23:29)
[2020-03-11] MEDS: RINGERS SOLUTION,LACTATED 1,000 ML IV PRN ×3 (01:12→19:28)
[2020-03-11] MEDS: MEROPENEM 1 GM in NORMAL SALINE 50 ML IV SCH ×3 (01:12→17:17)
[2020-03-11] MEDS: ACETAMINOPHEN 1,000 MG/100 ML RTUPB IV SCH ×4 (03:15→20:06)
[2020-03-11] MEDS: METRONIDAZOLE 500 MG/NS RTU 500 MG/100 ML RTUPB IV SCH ×3 (06:31→21:30)
[2020-03-11] MEDS: KETOROLAC TROMETHAMINE INJ/PF 30 MG/1 ML SDV IV SCH ×4 (06:32→23:27)
[2020-03-11 07:02] LABS: HEMATOCRIT 27.8 % (36.0-47.0); HEMOGLOBIN 9.5 g/dL (12.0-15.5); MEAN CORPUSCULAR HGB CONC 34.2 g/dL (32.0-36.0); MEAN CORPUSCULAR VOLUME 85 fl (80-97); PLATELET COUNT 437 10^3/uL (150-450); RED BLOOD COUNT 3.28 10^6/uL (3.72-5.28); RED CELL DISTRIBUTION WIDTH 15.9 % (11.5-14.0); WHITE BLOOD COUNT 23.3 10^3/uL (4.0-10.5)
[2020-03-11 07:25] LABS: BLOOD UREA NITROGEN 21 mg/dL (7-20); CALCIUM 7.8 mg/dL (8.4-10.2); CARBON DIOXIDE 29 mmol/L (22-30); CHLORIDE 102 mmol/L (98-107); GLUCOSE 124 mg/dL (75-110); POTASSIUM 3.9 mmol/L (3.6-5.0)
[2020-03-11 07:28] LABS: ANION GAP 4 (5-19)
[2020-03-11 07:32] LABS: ABSOLUTE LYMPHOCYTES# (MANUAL) 1.9 10^3/uL (0.5-4.7); ABSOLUTE MONOCYTES # (MANUAL) 0.5 10^3/uL (0.1-1.4); BASOPHILS % (MANUAL) 0 % (0-2); EOSINOPHILS % (MANUAL) 0 % (0-6); LYMPHOCYTES % (MANUAL) 8 % (13-45); MONOCYTES % (MANUAL) 2 % (3-13); NUCLEATED RED BLOOD CELLS 1 /100 WBC (0); SEGMENTED NEUTROPHILS % (MAN) 90 % (42-78); TOTAL CELLS COUNTED 100
[2020-03-11 07:35] LABS: PLATELET COMMENT ADEQUATE; RBC MORPHOLOGY COMMENT NORMO-CYTIC/CHROMIC
--- NOTE | 2020-03-11 10:26 | PDOC PROGRESS REPORT ---
Subjective Progress Note for:: 03/11/20 Subjective:: feels sl better less back pain Reason For Visit: COMPLICATED DIVERTICULITIS WITH A PELVIC ABSCESS Physical Exam Vital Signs: Temp Pulse Resp BP Pulse Ox 97.3 F 77 18 139/79 H 98 03/11/20 07:16 03/11/20 07:16 03/11/20 07:16 03/11/20 07:16 03/11/20 07:16 Intake & Output 03/10/20 03/11/20 03/12/20 06:59 06:59 06:59 Intake Total 9870 2850 1200 Output Total 5050 1175 Balance 4820 1675 1200 Weight 61.8 kg 64.9 kg General appearance: PRESENT: no acute distress Eye exam: PRESENT: EOMI Ear exam: PRESENT: normal external ear exam Mouth exam: PRESENT: moist Neck exam: PRESENT: full ROM Respiratory exam: PRESENT: clear to auscultation carlos Cardiovascular exam: PRESENT: RRR Pulses: PRESENT: normal radial pulses, normal femoral pulses GI/Abdominal exam: PRESENT: soft, other - midline wound covered no drainage stoma pink non productive Rectal exam: PRESENT: deferred Extremities exam: PRESENT: full ROM Musculoskeletal exam: PRESENT: full ROM Neurological exam: PRESENT: alert, awake, oriented to person, oriented to place Skin exam: PRESENT: dry Results Laboratory Results: 03/11/20 06:50 03/11/20 06:50 03/11/20 03/11/20 06:50 06:50 WBC 23.3 H RBC 3.28 L Hgb 9.5 L Hct 27.8 L MCV 85 MCH 29.0 MCHC 34.2 RDW 15.9 H Plt Count 437 Seg Neutrophils % Not Reportable Sodium 134.9 L Potassium 3.9 Chloride 102 Carbon Dioxide 29 Anion Gap 4 L BUN 21 H Creatinine 0.72 Est GFR ( Amer) > 60 Glucose 124 H Calcium 7.8 L 03/06/20 01:58 Blood Blood Culture - Final NO GROWTH IN 5 DAYS Impressions: Abdomen/Pelvis CT 03/05/20 00:00 IMPRESSION: Worsening abscesses within the central pelvis, almost certainly due to prior episode of diverticulitis. Retroperitoneal Abscess Drainage 03/06/20 08:00 IMPRESSION: Successful placement of percutaneous drainage catheter into the largest of 3 pelvic fluid collections as described. Purulent fluid was aspirated. Samples were sent to pathology for evaluation. Assessment & Plan - Plan Summary Plan Summary: s/p ex lap and small bowel resection and sigmoid colectomy iwth colostomyt for perforated diverticulitis iwth abscess doing sl better today still no bowel [id number] will dc ng increase activity.
[2020-03-11] MEDS: HYDROMORPHONE HCL INJ/PF 2 MG/ML AMPULE IV PRN ×2 (12:32→19:29)
[2020-03-12] MEDS: MEROPENEM 1 GM in NORMAL SALINE 50 ML IV SCH ×3 (01:23→18:02)
[2020-03-12] MEDS: ACETAMINOPHEN 1,000 MG/100 ML RTUPB IV SCH ×4 (02:47→20:19)
[2020-03-12] MEDS: KETOROLAC TROMETHAMINE INJ/PF 30 MG/1 ML SDV IV SCH ×3 (05:52→18:02)
[2020-03-12] MEDS: RINGERS SOLUTION,LACTATED 1,000 ML IV PRN (05:52)
[2020-03-12] MEDS: METRONIDAZOLE 500 MG/NS RTU 500 MG/100 ML RTUPB IV SCH ×3 (05:52→21:04)
[2020-03-12 06:44] LABS: HEMATOCRIT 28.8 % (36.0-47.0); HEMOGLOBIN 9.7 g/dL (12.0-15.5); MEAN CORPUSCULAR HEMOGLOBIN 28.9 pg (27.0-33.4); MEAN CORPUSCULAR HGB CONC 33.7 g/dL (32.0-36.0); MEAN CORPUSCULAR VOLUME 86 fl (80-97); PLATELET COUNT 415 10^3/uL (150-450); RED BLOOD COUNT 3.37 10^6/uL (3.72-5.28); RED CELL DISTRIBUTION WIDTH 15.9 % (11.5-14.0); WHITE BLOOD COUNT 21.3 10^3/uL (4.0-10.5)
[2020-03-12 07:00] LABS: ANION GAP 7 (5-19); BLOOD UREA NITROGEN 22 mg/dL (7-20); CALCIUM 7.5 mg/dL (8.4-10.2); CARBON DIOXIDE 25 mmol/L (22-30); CHLORIDE 102 mmol/L (98-107); GLUCOSE 84 mg/dL (75-110); POTASSIUM 3.8 mmol/L (3.6-5.0)
[2020-03-12 07:08] LABS: ABSOLUTE LYMPHOCYTES# (MANUAL) 2.3 10^3/uL (0.5-4.7); ABSOLUTE MONOCYTES # (MANUAL) 0.4 10^3/uL (0.1-1.4); BASOPHILS % (MANUAL) 0 % (0-2); EOSINOPHILS % (MANUAL) 0 % (0-6); LYMPHOCYTES % (MANUAL) 11 % (13-45); MONOCYTES % (MANUAL) 2 % (3-13); SEGMENTED NEUTROPHILS % (MAN) 87 % (42-78); TOTAL CELLS COUNTED 100
[2020-03-12 07:09] LABS: ANISOCYTOSIS SLIGHT; PLATELET COMMENT ADEQUATE
[2020-03-12] MEDS ORDERED: RINGERS SOLUTION,LACTATED 1,000 ML IV PRN (08:22)
--- NOTE | 2020-03-12 08:26 | PDOC PROGRESS REPORT ---
Subjective Progress Note for:: 03/12/20 Subjective:: feels better Reason For Visit: COMPLICATED DIVERTICULITIS WITH A PELVIC ABSCESS Physical Exam Vital Signs: Temp Pulse Resp BP Pulse Ox 97.7 F 69 18 146/84 H 100 03/12/20 07:49 03/12/20 07:49 03/12/20 07:49 03/12/20 07:49 03/12/20 07:49 Intake & Output 03/11/20 03/12/20 03/13/20 06:59 06:59 06:59 Intake Total 2850 3700 350 Output Total 1175 925 Balance 1675 2775 350 Weight 64.9 kg 64.9 kg General appearance: PRESENT: no acute distress Head exam: PRESENT: normocephalic Eye exam: PRESENT: EOMI Ear exam: PRESENT: normal external ear exam Mouth exam: PRESENT: moist Neck exam: PRESENT: full ROM Respiratory exam: PRESENT: clear to auscultation carlos Cardiovascular exam: PRESENT: RRR Pulses: PRESENT: +2 pedal pulses bilateral Vascular exam: PRESENT: normal capillary refill GI/Abdominal exam: PRESENT: soft, other - stoma productive of stool Rectal exam: PRESENT: deferred, tenderness, other. ABSENT: heme (-) stool Gentrourinary exam: PRESENT: indwelling catheter Extremities exam: PRESENT: full ROM Musculoskeletal exam: PRESENT: full ROM Neurological exam: PRESENT: alert, awake, oriented to person, oriented to place Psychiatric exam: PRESENT: appropriate affect Skin exam: PRESENT: dry Results Laboratory Results: 03/12/20 06:22 03/12/20 06:22 03/12/20 03/12/20 06:22 06:22 WBC 21.3 H RBC 3.37 L Hgb 9.7 L Hct 28.8 L MCV 86 MCH 28.9 MCHC 33.7 RDW 15.9 H Plt Count 415 Seg Neutrophils % Not Reportable Sodium 134.1 L Potassium 3.8 Chloride 102 Carbon Dioxide 25 Anion Gap 7 BUN 22 H Creatinine 0.64 Est GFR ( Amer) > 60 Glucose 84 Calcium 7.5 L Impressions: Abdomen/Pelvis CT 03/05/20 00:00 IMPRESSION: Worsening abscesses within the central pelvis, almost certainly due to prior episode of diverticulitis. Retroperitoneal Abscess Drainage 03/06/20 08:00 IMPRESSION: Successful placement of percutaneous drainage catheter into the largest of 3 pelvic fluid collections as described. Purulent fluid was aspirated. Samples were sent to pathology for evaluation. Assessment & Plan - Plan Summary Plan Summary: wbc trending down stoma now productive of stool some pedal edema 2+ plan decrease ivf full liquids dc caballero increase activity
[2020-03-12] MEDS: HYDROMORPHONE HCL INJ/PF 2 MG/ML AMPULE IV PRN ×2 (14:48→21:03)
[2020-03-13] MEDS: KETOROLAC TROMETHAMINE INJ/PF 30 MG/1 ML SDV IV SCH ×4 (00:39→17:03)
[2020-03-13] MEDS: MEROPENEM 1 GM in NORMAL SALINE 50 ML IV SCH ×3 (02:27→17:05)
[2020-03-13] MEDS: ACETAMINOPHEN 1,000 MG/100 ML RTUPB IV SCH ×4 (02:28→21:08)
[2020-03-13 06:56] LABS: ABSOLUTE EOSINOPHILS # (AUTO) 0.1 10^3/uL (0.0-0.6); ABSOLUTE LYMPHOCYTES (AUTO) 2.3 10^3/uL (0.5-4.7); ABSOLUTE MONOCYTES (AUTO) 0.7 10^3/uL (0.1-1.4); ABSOLUTE NEUT (AUTO) 11.7 10^3/uL (1.7-8.2); BASOPHILS % (AUTO) 0.2 % (0-2); EOSINOPHILS % (AUTO) 0.7 % (0-6); HEMATOCRIT 29.4 % (36.0-47.0); LYMPHOCYTES % (AUTO) 15.7 % (13-45); MEAN CORPUSCULAR HEMOGLOBIN 29.7 pg (27.0-33.4); MEAN CORPUSCULAR VOLUME 87 fl (80-97); MONOCYTES % (AUTO) 4.8 % (3-13); PLATELET COUNT 455 10^3/uL (150-450); RED BLOOD COUNT 3.37 10^6/uL (3.72-5.28); SEGMENTED NEUTROPHILS % (AUTO) 78.6 % (42-78); TOTAL CELLS COUNTED % (AUTO) 100 %; WHITE BLOOD COUNT 14.8 10^3/uL (4.0-10.5)
[2020-03-13 07:26] LABS: ANION GAP 6 (5-19); BLOOD UREA NITROGEN 14 mg/dL (7-20); CALCIUM 7.4 mg/dL (8.4-10.2); CARBON DIOXIDE 27 mmol/L (22-30); CHLORIDE 100 mmol/L (98-107); GLUCOSE 94 mg/dL (75-110); POTASSIUM 3.7 mmol/L (3.6-5.0)
--- NOTE | 2020-03-13 08:18 | PDOC PROGRESS REPORT ---
Subjective Progress Note for:: 03/13/20 Subjective:: feels better Reason For Visit: COMPLICATED DIVERTICULITIS WITH A PELVIC ABSCESS Physical Exam Vital Signs: Temp Pulse Resp BP Pulse Ox 98.0 F 74 17 122/77 100 03/12/20 23:06 03/12/20 23:06 03/12/20 23:06 03/12/20 23:06 03/12/20 23:06 Intake & Output 03/12/20 03/13/20 03/14/20 06:59 06:59 06:59 Intake Total 3700 2300 Output Total 925 300 Balance 2775 2000 Weight 64.9 kg 64.9 kg General appearance: PRESENT: no acute distress Head exam: PRESENT: normocephalic Eye exam: PRESENT: EOMI Mouth exam: PRESENT: moist Respiratory exam: PRESENT: clear to auscultation carlos Cardiovascular exam: PRESENT: RRR Pulses: PRESENT: normal radial pulses, normal femoral pulses Vascular exam: PRESENT: normal capillary refill Breast: PRESENT: Normal GI/Abdominal exam: PRESENT: soft, other - soft, nontender telfa strips removed stoma pink, functional Rectal exam: PRESENT: deferred Extremities exam: PRESENT: full ROM, +1 edema Musculoskeletal exam: PRESENT: full ROM Neurological exam: PRESENT: alert, awake, oriented to person, oriented to place Skin exam: PRESENT: dry Results Laboratory Results: 03/13/20 05:54 03/13/20 05:54 03/13/20 03/13/20 05:54 05:54 WBC 14.8 H RBC 3.37 L Hgb 10.0 L Hct 29.4 L MCV 87 MCH 29.7 MCHC 34.0 RDW 16.0 H Plt Count 455 H Seg Neutrophils % 78.6 H Sodium 133.3 L Potassium 3.7 Chloride 100 Carbon Dioxide 27 Anion Gap 6 BUN 14 Creatinine 0.56 Est GFR ( Amer) > 60 Glucose 94 Calcium 7.4 L Impressions: Abdomen/Pelvis CT 03/05/20 00:00 IMPRESSION: Worsening abscesses within the central pelvis, almost certainly due to prior episode of diverticulitis. Retroperitoneal Abscess Drainage 03/06/20 08:00 IMPRESSION: Successful placement of percutaneous drainage catheter into the largest of 3 pelvic fluid collections as described. Purulent fluid was aspirated. Samples were sent to pathology for evaluation. Assessment & Plan - Plan Summary Plan Summary: wbc normalizing feels ok vicky reg diet plan arrange home health prob dc home tomorrow.
[2020-03-13] MEDS: ONDANSETRON HCL INJ/PF 4 MG/2 ML SDV IV PRN (11:28)
[2020-03-14] MEDS: KETOROLAC TROMETHAMINE INJ/PF 30 MG/1 ML SDV IV SCH ×3 (00:05→12:17)
[2020-03-14] MEDS: ACETAMINOPHEN 1,000 MG/100 ML RTUPB IV SCH ×3 (02:20→14:48)
[2020-03-14] MEDS: MEROPENEM 1 GM in NORMAL SALINE 50 ML IV SCH ×2 (02:20→11:01)
[2020-03-14 11:52] VITALS: BP 128/72
--- NOTE | 2020-03-15 12:37 | PDOC DISCHARGE SUMMARY ---
General - Admit/Disc Date/PCP Admission Date/Primary Care Provider: 03/05/20 22:42 ALFREDO REINOSO MD Discharge Date: 03/14/20 - Discharge Diagnosis Final Diagnosis: perforated signoid diverticulitis - Assessment Summary: She was admitted to the hospital with lower abdominal pain work-up in the emergency room with a CAT scan revealed perforated diverticulitis with a pelvic abscess. Patient was initially treated with IV fluids and IV antibiotics the following day was sent to interventional radiology for percutaneous drainage of the abscess cavity. Subsequent to the percutaneous drainage that she pain somewhat improved however subsequent to that 2 to 3 days she developed increasing abdominal pain with rising white count. She was therefore deemed failed at medical management and therefore scheduled for surgery. She underwent a exploratory laparotomy with removal of the percutaneous placed drain removal of the sigmoid colon with a Rose's procedure. Sub-subsequent that she slowly improved over the course of the week she she was initially started on clear liquid diet which was advanced to full liquids and regular food by the time of discharge she has a colostomy left lower quadrant wound is now closed she is ready for discharge home. She will be discharged home on p.o. pain medicines and a follow-up appointment in surgical clinic in 7 to 10 days. Also home health nurse has been assigned for colostomy care and colostomy teaching. - Additional Information Resuscitation Status: Full Code Discharge Activity: Activity As Tolerated, No Lifting Over 10 Pounds Referrals: ALFREDO REINOSO MD [Primary Care Provider] - 03/23/20 9:15 am Prescriptions: Lorazepam [Ativan 1 mg Tablet] 1 mg PO Q12HP PRN #30 tab PRN Reason: Hydrocodone/Acetaminophen [[place] 10-325 mg Tablet] 1 tab PO Q6HP PRN #20 tablet PRN Reason: Home Medications: Hydrocodone/Acetaminophen [[place] 10-325 mg Tablet] 1 tab PO Q6HP PRN #20 tablet 03/14/20 Lorazepam [Ativan 1 mg Tablet] 1 mg PO Q12HP PRN #30 tab 03/14/20 History of Present Illiness History of Present Illness: JFEFREY HERNANDEZ is a 59 year old female Physical Exam Vital Signs: Temp Pulse Resp BP Pulse Ox 98.4 F 97 16 139/77 H 100 03/14/20 07:26 03/14/20 07:26 03/14/20 07:26 03/14/20 07:26 03/14/20 07:26 Intake & Output 03/13/20 03/14/20 03/15/20 06:59 06:59 06:59 Intake Total 2300 1056 Output Total 300 400 Balance 2000 656 Weight 64.9 kg 64.9 kg Results Laboratory Results: WBC 14.8 10^3/uL (4.0-10.5) H 03/13/20 05:54 RBC 3.37 10^6/uL (3.72-5.28) L 03/13/20 05:54 Hgb 10.0 g/dL (12.0-15.5) L 03/13/20 05:54 Hct 29.4 % (36.0-47.0) L 03/13/20 05:54 MCV 87 fl (80-97) 03/13/20 05:54 MCH 29.7 pg (27.0-33.4) 03/13/20 05:54 MCHC 34.0 g/dL (32.0-36.0) 03/13/20 05:54 RDW 16.0 % (11.5-14.0) H 03/13/20 05:54 Plt Count 455 10^3/uL (150-450) H 03/13/20 05:54 Lymph % (Auto) 15.7 % (13-45) 03/13/20 05:54 [place] % (Auto) 4.8 % (3-13) 03/13/20 05:54 Eos % (Auto) 0.7 % (0-6) 03/13/20 05:54 Baso % (Auto) 0.2 % (0-2) 03/13/20 05:54 Absolute Neuts (auto) 11.7 10^3/uL (1.7-8.2) H 03/13/20 05:54 Absolute Lymphs (auto) 2.3 10^3/uL (0.5-4.7) 03/13/20 05:54 Absolute Monos (auto) 0.7 10^3/uL (0.1-1.4) 03/13/20 05:54 Absolute Eos (auto) 0.1 10^3/uL (0.0-0.6) 03/13/20 05:54 Absolute Basos (auto) 0.0 10^3/uL (0.0-0.2) 03/13/20 05:54 Total Counted 100 03/12/20 06:22 Seg Neutrophils % 78.6 % (42-78) H 03/13/20 05:54 Seg Neuts % (Manual) 87 % (42-78) H 03/12/20 06:22 Band Neutrophils % 4 % (3-5) 03/08/20 05:02 Lymphocytes % (Manual) 11 % (13-45) L 03/12/20 06:22 Monocytes % (Manual) 2 % (3-13) L 03/12/20 06:22 Eosinophils % (Manual) 0 % (0-6) 03/12/20 06:22 Basophils % (Manual) 0 % (0-2) 03/12/20 06:22 Abs Neuts (Manual) 18.5 10^3/uL (1.7-8.2) H 03/12/20 06:22 Abs Lymphs (Manual) 2.3 10^3/uL (0.5-4.7) 03/12/20 06:22 Abs Monocytes (Manual) 0.4 10^3/uL (0.1-1.4) 03/12/20 06:22 Absolute Eos (Manual) 0.0 10^3/uL (0.0-0.6) 03/12/20 06:22 Abs Basophils (Manual) 0.0 10^3/uL (0.0-0.2) 03/12/20 06:22 Nucleated RBCs 1 /100 WBC (0) 03/11/20 06:50 Toxic Granulation SLIGHT 03/08/20 05:02 Platelet Estimate Cancelled 03/06/20 16:15 Platelet Comment ADEQUATE 03/12/20 06:22 Anisocytosis SLIGHT 03/12/20 06:22 Ovalocytes SLIGHT 03/08/20 05:02 RBC Morph Comment NORMO-CYTIC/CHROMIC 03/11/20 06:50 PT 15.2 SEC (11.4-15.4) 03/06/20 07:59 INR 1.19 03/06/20 07:59 Sodium 133.3 mmol/L (137-145) L 03/13/20 05:54 Potassium 3.7 mmol/L (3.6-5.0) 03/13/20 05:54 Chloride 100 mmol/L (98-107) 03/13/20 05:54 Carbon Dioxide 27 mmol/L (22-30) 03/13/20 05:54 Anion Gap 6 (5-19) 03/13/20 05:54 BUN 14 mg/dL (7-20) 03/13/20 05:54 Creatinine 0.56 mg/dL (0.52-1.25) 03/13/20 05:54 Est GFR ( Amer) > 60 (>60) 03/13/20 05:54 Est GFR (MDRD) Non-Af > 60 (>60) 03/13/20 05:54 Glucose 94 mg/dL (75-110) 03/13/20 05:54 Calcium 7.4 mg/dL (8.4-10.2) L 03/13/20 05:54 Total Bilirubin 1.5 mg/dL (0.2-1.3) H 03/05/20 17:45 Direct Bilirubin 0.4 mg/dL (0.0-0.4) 03/05/20 17:45 Neonat Total Bilirubin Not Reportable 03/05/20 17:45 Neonat Direct Bilirubin Not Reportable 03/05/20 17:45 Neonat Indirect Bili Not Reportable 03/05/20 17:45 AST 22 U/L (14-36) 03/05/20 17:45 ALT 12 U/L (<35) 03/05/20 17:45 Alkaline Phosphatase 125 U/L (38-126) 03/05/20 17:45 Total Protein 7.4 g/dL (6.3-8.2) 03/05/20 17:45 Albumin 3.8 g/dL (3.5-5.0) 03/05/20 17:45 Lipase 37.9 U/L (23-300) 03/05/20 17:45 Urine Color DARK YELLOW 03/05/20 19:45 Urine Appearance CLOUDY 03/05/20 19:45 Urine pH 5.0 (5.0-9.0) 03/05/20 19:45 Ur Specific [place] 1.027 03/05/20 19:45 Urine Protein 100 mg/dL (NEGATIVE) H 03/05/20 19:45 Urine Glucose (UA) NEGATIVE mg/dL (NEGATIVE) 03/05/20 19:45 Urine Ketones 80 mg/dL (NEGATIVE) H 03/05/20 19:45 Urine Blood SMALL (NEGATIVE) H 03/05/20 19:45 Urine Nitrite NEGATIVE (NEGATIVE) 03/05/20 19:45 Urine Bilirubin SMALL (NEGATIVE) H 03/05/20 19:45 Urine Urobilinogen 4.0 mg/dL (<2.0) H 03/05/20 19:45 Ur Leukocyte Esterase MODERATE (NEGATIVE) H 03/05/20 19:45 Urine WBC (Auto) 32 /HPF 03/05/20 19:45 Urine RBC (Auto) 36 /HPF 03/05/20 19:45 Urine Bacteria (Auto) 1+ /HPF 03/05/20 19:45 Squamous Epi Cells Auto 14 /HPF 03/05/20 19:45 U Non-Squamous Epis Auto 2 /HPF 03/05/20 19:45 Urine Mucus (Auto) MANY /LPF 03/05/20 19:45 Urine Ascorbic Acid NEGATIVE (NEGATIVE) 03/05/20 19:45 SARS-CoV-2 (PCR) NEGATIVE (NEGATIVE) 03/05/20 22:14 Slides for Path Review Cancelled 03/06/20 16:15 Impressions: Abdomen/Pelvis CT 03/05/20 00:00 IMPRESSION: Worsening abscesses within the central pelvis, almost certainly due to prior episode of diverticulitis. Retroperitoneal Abscess Drainage 03/06/20 08:00 IMPRESSION: Successful placement of percutaneous drainage catheter into the largest of 3 pelvic fluid collections as described. Purulent fluid was aspirated. Samples were sent to pathology for evaluation.
== END 2020-03-14 15:00 | disposition home health service (06) | DRG 331 ==
LOC: ER 15:44 → EH 22:42 → 4S 03-06 01:30
PROVIDERS: ADMIT Surgery; ATTEND Surgery
PROC: 0W9J30Z Drainage of Pelvic Cavity with Drainage Device, Percutaneous Approach (ICD-10-PCS; 2020-03-06)
PROC: 0DBB0ZZ Excision of Ileum, Open Approach (ICD-10-PCS; 2020-03-09)
PROC: 0DTH0ZZ Resection of Cecum, Open Approach (ICD-10-PCS; 2020-03-09)
PROC: 0DB80ZZ Excision of Small Intestine, Open Approach (ICD-10-PCS; 2020-03-09)
PROC: 0DTN0ZZ Resection of Sigmoid Colon, Open Approach (ICD-10-PCS; principal; 2020-03-09 11:00)
DX: K57.20 Diverticulitis of large intestine with perforation and abscess without bleeding (principal); E86.0 Dehydration; Z60.2 Problems related to living alone; F32.9 Major depressive disorder, single episode, unspecified; Z87.891 Personal history of nicotine dependence; Z88.2 Allergy status to sulfonamides; Z88.3 Allergy status to other anti-infective agents; Z91.010 Allergy to peanuts; Z03.818 Encounter for observation for suspected exposure to other biological agents ruled out
CPT/HCPCS: 36415; 49406; 74177; 80048; 80053; 81001; 83690; 840; 85025; 85610; 87040; 87070; 87075; 87077; 87150; 87186; 87205; 87635; 88307; 93005; 93010; 96361; 96374; 96375; 99140; 99285; C1729; C1769; C1894; C9290; C9803; J0131; J0694; J1100; J1170; J1885; J2185; J2250; J2270; J2405; J2550; J2704; J2710; J3010; J3490; J7030; J7120

== ENCOUNTER 2020-03-20 19:22 | Emergency (ER) | payer BC ==
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
[2020-03-20] MEDS ORDERED: MORPHINE SULFATE 10 MG/ML INJ IV ONE ×2 (20:10→22:37)
[2020-03-20] MEDS ORDERED: ONDANSETRON HCL INJ/PF 4 MG/2 ML SDV IV ONE ×2 (20:10→22:39)
[2020-03-20] MEDS ORDERED: NORMAL SALINE 1000 ML 1,000 ML IV ONE ×2 (20:13→22:39)
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
[2020-03-20 22:44] LABS: ABSOLUTE BASOPHILS # (AUTO) 0.1 10^3/uL (0.0-0.2); ABSOLUTE EOSINOPHILS # (AUTO) 0.1 10^3/uL (0.0-0.6); ABSOLUTE NEUT (AUTO) 8.9 10^3/uL (1.7-8.2); BASOPHILS % (AUTO) 0.5 % (0-2); EOSINOPHILS % (AUTO) 1.1 % (0-6); HEMATOCRIT 26.6 % (36.0-47.0); LYMPHOCYTES % (AUTO) 16.5 % (13-45); MEAN CORPUSCULAR HEMOGLOBIN 30.2 pg (27.0-33.4); MEAN CORPUSCULAR HGB CONC 33.8 g/dL (32.0-36.0); MEAN CORPUSCULAR VOLUME 89 fl (80-97); MONOCYTES % (AUTO) 8.2 % (3-13); PLATELET COUNT 736 10^3/uL (150-450); RED BLOOD COUNT 2.98 10^6/uL (3.72-5.28); RED CELL DISTRIBUTION WIDTH 17.5 % (11.5-14.0); SEGMENTED NEUTROPHILS % (AUTO) 73.7 % (42-78); TOTAL CELLS COUNTED % (AUTO) 100 %; WHITE BLOOD COUNT 12.1 10^3/uL (4.0-10.5)
[2020-03-20 23:03] LABS: ALBUMIN 2.9 g/dL (3.5-5.0); ALKALINE PHOSPHATASE 102 U/L (38-126); ASPARTATE AMINO TRANSFERASE 31 U/L (14-36); BILIRUBIN,TOTAL 0.3 mg/dL (0.2-1.3); BLOOD UREA NITROGEN 15 mg/dL (7-20); CALCIUM 8.5 mg/dL (8.4-10.2); GLUCOSE 113 mg/dL (75-110); POTASSIUM 4.3 mmol/L (3.6-5.0); TOTAL PROTEIN 5.9 g/dL (6.3-8.2)
[2020-03-20 23:09] LABS: CARBON DIOXIDE 30 mmol/L (22-30); CHLORIDE 105 mmol/L (98-107)
[2020-03-20 23:14] LABS: ANION GAP 2 (5-19)
[2020-03-21 00:21] LABS: APPEARANCE,URINE CLOUDY; BILIRUBIN,URINE NEGATIVE (NEGATIVE); COLOR,URINE YELLOW; GLUCOSE, URINE NEGATIVE (NEGATIVE); KETONES,URINE NEGATIVE (NEGATIVE); LEUKOCYTE ESTERASE,URINE TRACE (NEGATIVE); NITRITE,URINE NEGATIVE (NEGATIVE); PROTEIN,URINE 30 mg/dL (NEGATIVE); UROBILINOGEN,URINE NEGATIVE mg/dL (<2.0)
[2020-03-21] MEDS ORDERED: FLUCONAZOLE 100 MG TABLET PO ONE (01:31)
[2020-03-21] MEDS ORDERED: MORPHINE SULFATE 10 MG/ML INJ IV ONE (01:31)
--- NOTE | 2020-03-21 01:35 | RADIOLOGY REPORT (SQ) ---
EXAM DESCRIPTION: CT ABDOMEN PELVIS WITH IV CONTRAST COMPLETED DATE/TME: 03/20/2020 21:33 CLINICAL HISTORY: 59 years, Female, ostomy site bleeding. HX PERF DIVERTICULITIS SURG 03/09/20. CREAT 0.69 COMPARISON: 03/06/2020 TECHNIQUE: Axial CT images of the abdomen and pelvis were obtained after the administration of IV contrast. Sagittal and coronal reformats were performed. DLP 604 Images stored on PACS. All CT scanners at this facility use dose modulation, iterative reconstruction, and/or weight based dosing when appropriate to reduce radiation dose to as low as reasonably achievable (ALARA). [facility]: Dose Right [facility]: CareDose [facility]: Dose Right [facility]: Teradose 4D [facility]: [employer] Technologies LIMITATIONS: None. FINDINGS: Small bilateral pleural effusions have developed. A calcified granuloma is noted in the right middle lobe. The liver, gallbladder, pancreas, spleen, and adrenal glands are unremarkable. Both kidneys enhance normally. No evidence of hydronephrosis. There is a small amount of fluid along the left paracolic gutter. There are small bubbles of air adjacent to the rectum. There are atherosclerotic calcifications of the abdominal aorta. No pathologically enlarged lymph nodes are detected. The stomach is unremarkable. A duodenal diverticulum is noted. No evidence of a bowel obstruction. There are changes of a recent Wen procedure with a left lower quadrant colostomy and changes of a midline incision. Single diverticula is noted along the descending colon without evidence of diverticulitis. Mild stranding with tiny bubble of subcutaneous emphysema around the ostomy site. No parastomal hernia or focal collection. The rectal stump appears unremarkable. The uterus and urinary bladder are unremarkable. The previously seen abscesses are no longer visualized. There are no lytic or blastic bone lesions. IMPRESSION: Development of small bilateral pleural effusions. The previously seen abscesses are no longer visualized. Changes of a Wen procedure with left lower quadrant colostomy with mild stranding and tiny bubble of subcutaneous emphysema around the ostomy site. No parastomal hematoma or focal collection around the ostomy site. TECHNICAL DOCUMENTATION: Quality ID # [id number]: Final reports with documentation of one or more dose reduction techniques (e.g., Automated exposure control, adjustment of the mA and/or kV according to patient size, use of iterative reconstruction technique) copyright 2011 [employer]- All Rights Reserved
[2020-03-21] MEDS ORDERED: CLINDAMYCIN HCL 150 MG CAPSULE PO ONE (02:49)
[2020-03-21 06:42] VITALS: BP 127/67
== END 2020-03-21 06:42 | disposition home or self-care (01) ==
LOC: ER 19:22
DX: R10.9 Unspecified abdominal pain (principal); R11.0 Nausea; Z43.3 Encounter for attention to colostomy; Z88.0 Allergy status to penicillin; Z88.3 Allergy status to other anti-infective agents; Z88.2 Allergy status to sulfonamides
CPT/HCPCS: 99284; 96361; 96374; 96375; 36415; 83605; 85025; 80053; 81001; 74177; J2270 ×2; J2405; J7030

== ENCOUNTER 2020-05-01 05:31 | Inpatient (IN) | payer BC ==
[~2020-05-01 05:31] MED LIST: AZTREONAM 2 GM in DEXTROSE 5%-WATER 100 ML IV PRN; LACTATED RINGERS 1000 ML IV PRN; LIDOCAINE 0.5% INJ-PF (5 MG/ML) 50 ML SDV SUBCUT PRN
[2020-05-01] MEDS ORDERED: FENTANYL CITRATE INJ/PF 250 MCG/5 ML AMPULE ONE (06:26)
[2020-05-01] MEDS ORDERED: FENTANYL CITRATE INJ/PF 100 MCG/2 ML AMPUL ONE ×2 (06:26→09:54)
[2020-05-01] MEDS ORDERED: SUGAMMADEX SODIUM 200 MG/2 ML SDV IV ONE (06:26)
[2020-05-01] MEDS ORDERED: MIDAZOLAM 2 MG/2 ML INJ ONE (06:26)
[2020-05-01] MEDS ORDERED: ONDANSETRON HCL INJ/PF 4 MG/2 ML SDV ONE (06:26)
[2020-05-01] MEDS ORDERED: DEXAMETHASONE SOD PHOSPHATE INJ 4 MG/1 ML VIAL ONE (06:26)
[2020-05-01] MEDS ORDERED: PROPOFOL INJ 200 MG/20 ML VIAL IV ONE (06:27)
[2020-05-01] MEDS ORDERED: LIDOCAINE 0.5% INJ-PF (5 MG/ML) 50 ML SDV ONE (06:29)
[2020-05-01 07:50] LABS: ABSOLUTE BASOPHILS # (AUTO) 0.1 10^3/uL (0.0-0.2); ABSOLUTE EOSINOPHILS # (AUTO) 0.2 10^3/uL (0.0-0.6); ABSOLUTE LYMPHOCYTES (AUTO) 2.2 10^3/uL (0.5-4.7); ABSOLUTE MONOCYTES (AUTO) 0.4 10^3/uL (0.1-1.4); ABSOLUTE NEUT (AUTO) 3.3 10^3/uL (1.7-8.2); BASOPHILS % (AUTO) 1.1 % (0-2); EOSINOPHILS % (AUTO) 2.9 % (0-6); HEMATOCRIT 37.6 % (36.0-47.0); HEMOGLOBIN 12.6 g/dL (12.0-15.5); LYMPHOCYTES % (AUTO) 36.2 % (13-45); MEAN CORPUSCULAR HEMOGLOBIN 29.7 pg (27.0-33.4); MEAN CORPUSCULAR HGB CONC 33.5 g/dL (32.0-36.0); MEAN CORPUSCULAR VOLUME 89 fl (80-97); MONOCYTES % (AUTO) 5.9 % (3-13); PLATELET COUNT 371 10^3/uL (150-450); RED BLOOD COUNT 4.24 10^6/uL (3.72-5.28); RED CELL DISTRIBUTION WIDTH 16.1 % (11.5-14.0); SEGMENTED NEUTROPHILS % (AUTO) 53.9 % (42-78); TOTAL CELLS COUNTED % (AUTO) 100 %; WHITE BLOOD COUNT 6.2 10^3/uL (4.0-10.5)
[2020-05-01 08:04] LABS: ANION GAP 11 (5-19); BLOOD UREA NITROGEN 11 mg/dL (7-20); CALCIUM 9.5 mg/dL (8.4-10.2); CARBON DIOXIDE 19 mmol/L (22-30); CHLORIDE 109 mmol/L (98-107); GLUCOSE 106 mg/dL (75-110); POTASSIUM 4.2 mmol/L (3.6-5.0)
[2020-05-01] MEDS ORDERED: FENTANYL CITRATE INJ/PF 100 MCG/2 ML AMPUL IV PRN ×3 (09:12)
[2020-05-01] MEDS ORDERED: PROMETHAZINE HCL INJ 25 MG/1 ML VIAL IV PRN ×2 (09:12)
[2020-05-01] MEDS ORDERED: ONDANSETRON HCL INJ/PF 4 MG/2 ML SDV IV PRN (09:12)
[2020-05-01] MEDS ORDERED: MEPERIDINE HCL/PF INJ 25 MG/1 ML DISP.SYRIN IV PRN (09:12)
[2020-05-01] MEDS ORDERED: DIPHENHYDRAMINE HCL 50 MG/ML VIAL IV PRN (09:12)
[2020-05-01] MEDS ORDERED: MORPHINE SULFATE 10 MG/ML INJ IV PRN (09:12)
[2020-05-01] MEDS ORDERED: SUCCINYLCHOLINE CHLORIDE INJ 200 MG/10 ML VIAL ONE (09:33)
[2020-05-01] MEDS ORDERED: ROCURONIUM BROMIDE INJ 50 MG/5 ML VIAL IV ONE (09:33)
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
[2020-05-01] MEDS: MORPHINE SULFATE 10 MG/ML INJ ONE ×2 (10:00→10:25)
[2020-05-01] MEDS: PROMETHAZINE HCL INJ 25 MG/1 ML VIAL ONE ×2 (10:05→10:10)
[2020-05-01] MEDS ORDERED: ACETAMINOPHEN 1,000 MG/100 ML RTUPB IV ONE (10:19)
[2020-05-01] MEDS: LABETALOL HCL INJ 20 MG/4 ML DISP.SYRIN IV ONE ×3 (10:28→10:48)
[2020-05-01] MEDS ORDERED: HYDRALAZINE HCL INJ/PF 20 MG/1 ML SDV ONE (11:09)
[2020-05-01] MEDS ORDERED: HYDRALAZINE HCL INJ/PF 20 MG/1 ML SDV IV PRN (11:18)
[2020-05-01] MEDS ORDERED: LABETALOL HCL INJ 20 MG/4 ML DISP.SYRIN IV PRN (11:21)
[2020-05-01] MEDS: ACETAMINOPHEN INJ/PF 1000 MG/100 ML SDV IV SCH ×2 (11:34→18:19)
[2020-05-01] MEDS: FAMOTIDINE INJ/PF 20 MG/2 ML SDV IV SCH ×2 (11:55→21:38)
[2020-05-01] MEDS: POTASSI CL 20 MEQ/D5-1/2NS 1L 1,000 ML IV PRN ×2 (11:56→21:37)
[2020-05-01] MEDS: MORPHINE SULFATE 10 MG/ML INJ IV PRN ×2 (14:00→21:42)
[2020-05-02] MEDS: ACETAMINOPHEN INJ/PF 1000 MG/100 ML SDV IV SCH ×4 (01:11→17:24)
[2020-05-02] MEDS: MORPHINE SULFATE 10 MG/ML INJ IV PRN ×2 (01:18→04:44)
[2020-05-02 06:04] LABS: ABSOLUTE LYMPHOCYTES (AUTO) 2.8 10^3/uL (0.5-4.7); ABSOLUTE MONOCYTES (AUTO) 0.8 10^3/uL (0.1-1.4); ABSOLUTE NEUT (AUTO) 7.4 10^3/uL (1.7-8.2); BASOPHILS % (AUTO) 0.4 % (0-2); EOSINOPHILS % (AUTO) 0.1 % (0-6); HEMATOCRIT 32.8 % (36.0-47.0); HEMOGLOBIN 10.8 g/dL (12.0-15.5); LYMPHOCYTES % (AUTO) 25.1 % (13-45); MEAN CORPUSCULAR HEMOGLOBIN 29.8 pg (27.0-33.4); MEAN CORPUSCULAR HGB CONC 33.1 g/dL (32.0-36.0); MEAN CORPUSCULAR VOLUME 90 fl (80-97); MONOCYTES % (AUTO) 7.2 % (3-13); PLATELET COUNT 312 10^3/uL (150-450); RED BLOOD COUNT 3.64 10^6/uL (3.72-5.28); RED CELL DISTRIBUTION WIDTH 16.3 % (11.5-14.0); SEGMENTED NEUTROPHILS % (AUTO) 67.2 % (42-78); TOTAL CELLS COUNTED % (AUTO) 100 %
[2020-05-02 06:24] LABS: ANION GAP 8 (5-19); BLOOD UREA NITROGEN 10 mg/dL (7-20); CALCIUM 8.7 mg/dL (8.4-10.2); CARBON DIOXIDE 22 mmol/L (22-30); CHLORIDE 107 mmol/L (98-107); GLUCOSE 128 mg/dL (75-110); POTASSIUM 4.4 mmol/L (3.6-5.0)
--- NOTE | 2020-05-02 07:29 | PDOC PROGRESS REPORT ---
Subjective Progress Note for:: 05/02/20 Reason For Visit: Z43.3 ENCOUNTER FOR ATTENTION TO COLOSTOMY Physical Exam Vital Signs: Temp Pulse Resp BP Pulse Ox 98.0 F 77 18 152/71 H 100 05/02/20 04:41 05/02/20 04:41 05/02/20 04:41 05/02/20 04:41 05/02/20 04:41 Intake & Output 05/01/20 05/02/20 05/03/20 06:59 06:59 06:59 Intake Total 0 4538 Output Total 2220 Balance 0 2318 Weight 58 kg General appearance: PRESENT: no acute distress Head exam: PRESENT: normocephalic Eye exam: PRESENT: EOMI Ear exam: PRESENT: normal external ear exam Mouth exam: PRESENT: moist Neck exam: PRESENT: full ROM Respiratory exam: PRESENT: clear to auscultation carlos Cardiovascular exam: PRESENT: RRR Pulses: PRESENT: normal radial pulses, normal femoral pulses Breast: PRESENT: Normal GI/Abdominal exam: PRESENT: soft, other - incision dry, jasmina serous Rectal exam: PRESENT: deferred Gentrourinary exam: PRESENT: indwelling catheter Extremities exam: PRESENT: full ROM Musculoskeletal exam: PRESENT: full ROM Neurological exam: PRESENT: alert, awake, oriented to person, oriented to place Psychiatric exam: PRESENT: appropriate affect Skin exam: PRESENT: dry Results Laboratory Results: 05/02/20 05:01 05/02/20 05:01 05/01/20 05/01/20 05/02/20 07:20 07:20 05:01 WBC 6.2 11.0 H RBC 4.24 3.64 L Hgb 12.6 10.8 L Hct 37.6 32.8 L MCV 89 90 MCH 29.7 29.8 MCHC 33.5 33.1 RDW 16.1 H 16.3 H Plt Count 371 312 Seg Neutrophils % 53.9 67.2 Sodium 138.5 Potassium 4.2 Chloride 109 H Carbon Dioxide 19 L Anion Gap 11 BUN 11 Creatinine 0.64 Est GFR ( Amer) > 60 Glucose 106 Calcium 9.5 05/02/20 05:01 WBC RBC Hgb Hct MCV MCH MCHC RDW Plt Count Seg Neutrophils % Sodium 137.1 Potassium 4.4 Chloride 107 Carbon Dioxide 22 Anion Gap 8 BUN 10 Creatinine 0.70 Est GFR ( Amer) > 60 Glucose 128 H Calcium 8.7 Assessment & Plan - Time Anticipated Discharge Disposition: Home, Self Care Anticipated Discharge Timeframe: within 72 hours - Plan Summary Plan Summary: pod 1 s/p colostomy drop back doing ok plan add toradol out of bed.
[2020-05-02] MEDS: POTASSI CL 20 MEQ/D5-1/2NS 1L 1,000 ML IV PRN ×2 (08:15→15:01)
[2020-05-02] MEDS: FAMOTIDINE INJ/PF 20 MG/2 ML SDV IV SCH ×2 (09:53→21:49)
[2020-05-02] MEDS: KETOROLAC TROMETHAMINE INJ/PF 30 MG/1 ML SDV IV SCH ×3 (09:54→21:48)
[2020-05-02] MEDS: ONDANSETRON HCL INJ/PF 4 MG/2 ML SDV IV PRN (21:48)
[2020-05-03] MEDS: KETOROLAC TROMETHAMINE INJ/PF 30 MG/1 ML SDV IV SCH ×4 (02:32→21:57)
[2020-05-03] MEDS: ACETAMINOPHEN INJ/PF 1000 MG/100 ML SDV IV SCH ×4 (02:33→17:42)
[2020-05-03] MEDS ORDERED: HYDRALAZINE HCL 10 MG TABLET PO PRN (04:48)
[2020-05-03] MEDS: HYDRALAZINE HCL INJ/PF 20 MG/1 ML SDV IV PRN (05:06)
[2020-05-03] MEDS: MORPHINE SULFATE 10 MG/ML INJ IV PRN ×3 (05:15→20:11)
[2020-05-03] MEDS: POTASSI CL 20 MEQ/D5-1/2NS 1L 1,000 ML IV PRN (05:22)
--- NOTE | 2020-05-03 07:51 | PDOC PROGRESS REPORT ---
Subjective Progress Note for:: 05/03/20 Subjective:: anxious Reason For Visit: Z43.3 ENCOUNTER FOR ATTENTION TO COLOSTOMY Physical Exam Vital Signs: Temp Pulse Resp BP Pulse Ox 98.1 F 80 18 181/78 H 100 05/03/20 04:00 05/03/20 04:00 05/03/20 04:00 05/03/20 04:00 05/03/20 04:00 Intake & Output 05/02/20 05/03/20 05/04/20 06:59 06:59 06:59 Intake Total 5538 2464 Output Total 2220 2650 Balance 3318 -186 Weight 58 kg General appearance: PRESENT: no acute distress Head exam: PRESENT: normocephalic Eye exam: PRESENT: EOMI Ear exam: PRESENT: normal external ear exam Mouth exam: PRESENT: moist Neck exam: PRESENT: full ROM Respiratory exam: PRESENT: clear to auscultation carlos Cardiovascular exam: PRESENT: RRR Pulses: PRESENT: normal radial pulses, normal femoral pulses Vascular exam: PRESENT: normal capillary refill Breast: PRESENT: Normal GI/Abdominal exam: PRESENT: soft Rectal exam: PRESENT: deferred Gentrourinary exam: PRESENT: indwelling catheter Extremities exam: PRESENT: full ROM Musculoskeletal exam: PRESENT: full ROM Neurological exam: PRESENT: alert, awake, oriented to person, oriented to place Psychiatric exam: PRESENT: anxious, appropriate affect Skin exam: PRESENT: dry Results Laboratory Results: 05/02/20 05:01 05/02/20 05:01 Assessment & Plan - Time Anticipated Discharge Disposition: Home, Self Care Anticipated Discharge Timeframe: within 48 hours - Plan Summary Plan Summary: pod 2 s/p colostomy drop back doing ok\ no flatus as yet will dc [place]\ awaiting return of bowel function.
[2020-05-03] MEDS: FAMOTIDINE INJ/PF 20 MG/2 ML SDV IV SCH ×2 (09:43→21:57)
[2020-05-04] MEDS: POTASSI CL 20 MEQ/D5-1/2NS 1L 1,000 ML IV PRN ×2 (00:37→13:00)
[2020-05-04] MEDS: ACETAMINOPHEN INJ/PF 1000 MG/100 ML SDV IV SCH ×2 (00:37→06:00)
[2020-05-04] MEDS: MORPHINE SULFATE 10 MG/ML INJ IV PRN ×3 (02:22→18:40)
[2020-05-04] MEDS: KETOROLAC TROMETHAMINE INJ/PF 30 MG/1 ML SDV IV SCH ×4 (03:20→21:28)
[2020-05-04] MEDS: HYDRALAZINE HCL INJ/PF 20 MG/1 ML SDV IV PRN ×2 (04:59→19:58)
[2020-05-04] MEDS: ONDANSETRON HCL INJ/PF 4 MG/2 ML SDV IV PRN (06:40)
--- NOTE | 2020-05-04 07:27 | PDOC PROGRESS REPORT ---
Subjective Progress Note for:: 05/04/20 Subjective:: anxious Reason For Visit: Z43.3 ENCOUNTER FOR ATTENTION TO COLOSTOMY Physical Exam Vital Signs: Temp Pulse Resp BP Pulse Ox 97.5 F 53 L 20 147/66 H 100 05/04/20 00:00 05/04/20 00:00 05/04/20 00:00 05/04/20 04:00 05/04/20 00:00 Intake & Output 05/03/20 05/04/20 05/05/20 06:59 06:59 06:59 Intake Total 2464 1480 Output Total 2650 1595 Balance -186 -115 Weight 54.8 kg General appearance: PRESENT: no acute distress Head exam: PRESENT: normocephalic Eye exam: PRESENT: EOMI Ear exam: PRESENT: normal external ear exam Mouth exam: PRESENT: dry mucosa Teeth exam: PRESENT: poor dentation Neck exam: PRESENT: full ROM Respiratory exam: PRESENT: clear to auscultation carlos Cardiovascular exam: PRESENT: RRR Pulses: PRESENT: normal femoral pulses Vascular exam: PRESENT: normal capillary refill Breast: PRESENT: Normal GI/Abdominal exam: PRESENT: soft Rectal exam: PRESENT: deferred Extremities exam: PRESENT: full ROM Musculoskeletal exam: PRESENT: ambulatory Neurological exam: PRESENT: alert, awake, oriented to person, oriented to place Psychiatric exam: PRESENT: anxious Skin exam: PRESENT: dry Results Laboratory Results: 05/02/20 05:01 05/02/20 05:01 Assessment & Plan - Time Anticipated Discharge Disposition: Home, Self Care Anticipated Discharge Timeframe: within 24 hours - Plan Summary Plan Summary: s/p colostomy reversal doing ok now passing flatus will start full liquids poss home in am.
[2020-05-04] MEDS: FAMOTIDINE INJ/PF 20 MG/2 ML SDV IV SCH ×2 (09:15→21:28)
[2020-05-05] MEDS: KETOROLAC TROMETHAMINE INJ/PF 30 MG/1 ML SDV IV SCH (03:00)
[2020-05-05] MEDS: MORPHINE SULFATE 10 MG/ML INJ IV PRN (07:13)
--- NOTE | 2020-05-05 07:59 | PDOC DISCHARGE SUMMARY ---
General - Admit/Disc Date/PCP Admission Date/Primary Care Provider: 05/01/20 05:31 KESHA JACK DO Discharge Date: 05/05/20 - Discharge Diagnosis Final Diagnosis: History of diverticulitis status post colostomy drop back - Assessment Summary: Patient was admitted to the hospital on 05/01/2020 for an elective colostomy reversal. She underwent the procedure on the day of admission and tolerated well. Postoperatively she had a routine benign postop course. She was started on a clear liquid diet on hospital day 1 which was slowly advanced to full liquids. By time of discharge she is passing stool and flatus she has resumption of her bowel function she is on a full liquid diet her Ayan-Gifford drain has been removed and she is ready for discharge home today. She will be discharged home on p.o. Percocet as needed pain she will be given a follow-up appointment 1 week after discharge with my clinic. She is instructed to remove her waffle dressing her during her shower at home. She is instructed to leave the wound open to the air after the removal of the dressing. She is instructed not to lift anything more than 5 to 10 pounds for the next 4 to 6 weeks. - Additional Information Resuscitation Status: Full Code Discharge Diet: As Tolerated Discharge Activity: Activity As Tolerated, No Lifting Over 10 Pounds Referrals: [facility] [Provider Group] (1 WEEK) Prescriptions: Oxycodone HCl/Acetaminophen [Percocet 10-325 Mg Tablet] 1 each PO Q6HP PRN #15 tablet PRN Reason: Home Medications: Naproxen Sodium [Aleve] 220 mg PO Q8HP PRN 04/28/20 Oxycodone HCl/Acetaminophen [Percocet 10-325 Mg Tablet] 1 each PO Q6HP PRN #15 tablet 05/05/20 History of Present Illiness History of Present Illness: JEFFREY HERNANDEZ is a 59 year old female Physical Exam Vital Signs: Temp Pulse Resp BP Pulse Ox 98.8 F 105 H 16 127/89 H 100 05/05/20 04:19 05/05/20 04:19 05/05/20 04:19 05/05/20 04:19 05/05/20 04:19 Intake & Output 05/04/20 05/05/20 05/06/20 06:59 06:59 06:59 Intake Total 1480 1000 Output Total 1595 30 Balance -115 970 Weight 54.8 kg 60.6 kg Results Laboratory Results: WBC 11.0 10^3/uL (4.0-10.5) H 05/02/20 05:01 RBC 3.64 10^6/uL (3.72-5.28) L 05/02/20 05:01 Hgb 10.8 g/dL (12.0-15.5) L 05/02/20 05:01 Hct 32.8 % (36.0-47.0) L 05/02/20 05:01 MCV 90 fl (80-97) 05/02/20 05:01 MCH 29.8 pg (27.0-33.4) 05/02/20 05:01 MCHC 33.1 g/dL (32.0-36.0) 05/02/20 05:01 RDW 16.3 % (11.5-14.0) H 05/02/20 05:01 Plt Count 312 10^3/uL (150-450) 05/02/20 05:01 Lymph % (Auto) 25.1 % (13-45) 05/02/20 05:01 [place] % (Auto) 7.2 % (3-13) 05/02/20 05:01 Eos % (Auto) 0.1 % (0-6) 05/02/20 05:01 Baso % (Auto) 0.4 % (0-2) 05/02/20 05:01 Absolute Neuts (auto) 7.4 10^3/uL (1.7-8.2) 05/02/20 05:01 Absolute Lymphs (auto) 2.8 10^3/uL (0.5-4.7) 05/02/20 05:01 Absolute Monos (auto) 0.8 10^3/uL (0.1-1.4) 05/02/20 05:01 Absolute Eos (auto) 0.0 10^3/uL (0.0-0.6) 05/02/20 05:01 Absolute Basos (auto) 0.0 10^3/uL (0.0-0.2) 05/02/20 05:01 Seg Neutrophils % 67.2 % (42-78) 05/02/20 05:01 Sodium 137.1 mmol/L (137-145) 05/02/20 05:01 Potassium 4.4 mmol/L (3.6-5.0) 05/02/20 05:01 Chloride 107 mmol/L (98-107) 05/02/20 05:01 Carbon Dioxide 22 mmol/L (22-30) 05/02/20 05:01 Anion Gap 8 (5-19) 05/02/20 05:01 BUN 10 mg/dL (7-20) 05/02/20 05:01 Creatinine 0.70 mg/dL (0.52-1.25) 05/02/20 05:01 Est GFR ( Amer) > 60 (>60) 05/02/20 05:01 Est GFR (MDRD) Non-Af > 60 (>60) 05/02/20 05:01 Glucose 128 mg/dL (75-110) H 05/02/20 05:01 Calcium 8.7 mg/dL (8.4-10.2) 05/02/20 05:01 COVID-19 Source NASOPHARYNGEAL 04/28/20 09:40 COVID-19 (SYDNIE) NOT DETECTED 04/28/20 09:40
[2020-05-05 08:51] VITALS: BP 160/68
== END 2020-05-05 09:59 | disposition home or self-care (01) | DRG 331 ==
LOC: INOR 05:31 → 4W 11:23 → 4S 05-04 14:18
PROVIDERS: ADMIT Surgery; ATTEND Surgery
PROC: 0DBM0ZZ Excision of Descending Colon, Open Approach (ICD-10-PCS; 2020-05-01)
PROC: 0D1M0ZP Bypass Descending Colon to Rectum, Open Approach (ICD-10-PCS; principal; 2020-05-01 07:30)
DX: Z43.3 Encounter for attention to colostomy (principal); I10 Essential (primary) hypertension; F41.9 Anxiety disorder, unspecified; F32.9 Major depressive disorder, single episode, unspecified; Z87.891 Personal history of nicotine dependence; Z87.820 Personal history of traumatic brain injury; Z88.0 Allergy status to penicillin; Z88.1 Allergy status to other antibiotic agents; Z03.818 Encounter for observation for suspected exposure to other biological agents ruled out
CPT/HCPCS: 36415; 80048; 840; 85025; 87635; 94799; C1758; C9803; J0131; J0330; J0360; J1100; J1885; J2250; J2270; J2405; J2550; J2704; J3010; J3480; J3490; J7060; S0028